=== PATIENT | male | born 1945 | race Caucasian/White ===

== ENCOUNTER 2021-10-13 07:29 | Outpatient (CLI) | payer MEDICARE, SELFPAY | END 2021-10-13 07:30 | disposition home or self-care (01) | PROVIDERS: Visit Provider Urology | DX: R97.20 Elevated prostate specific antigen [PSA] (principal) | CPT/HCPCS: 51741; 51798; 81003; 84153; 99204 ==

== ENCOUNTER → 2021-10-18 15:26 | Outpatient (BNVA) | payer MEDICARE, SELFPAY | PROVIDERS: Visit Provider Urology | DX: R97.20 Elevated prostate specific antigen [PSA] (principal) | CPT/HCPCS: 88305 ==

== ENCOUNTER 2021-11-01 08:16 | Outpatient (CLI) | payer MEDICARE, SELFPAY ==
--- NOTE | 2021-11-01 09:00 | CT_ITS ---
WS: [id number] CT ABDOMEN AND PELVIS WITH AND WITHOUT CONTRAST HISTORY: ELEVATED PSA TECHNIQUE: Unenhanced 5 mm axial imaging first performed through the abdomen. Post contrast imaging t hrough the abdomen and pelvis. Oral contrast has been provided. Sagittal and coronal reformats are s ubmitted. All CT scans at [facility] use at least one of these dose optimization techniques: automated exposure control; mA and/or kV adjustment per patient size (includes targeted exams where d ose is matched to clinical indication); or iterative reconstruction. CONTRAST: Omnipaque 350; 95 mL IV. DLP: 2620.96 mGy.cm COMPARISON: None available. Mild emphysema at the lung bases. Benign granuloma RIGHT middle lobe. Heart size is normal. Small hia lee hernia. RIGHT kidney: 11.0 cm in length. Mild chronic appearing perinephric stranding. Vascular calcification s. No hydronephrosis or solid mass. The ureter is not dilated. No filling defects in the uroepithelia l system. LEFT kidney: 12.1 cm in length. Mild perinephric stranding. No obstruction. Vascular calcifications i n the central renal pelvis. No solid mass. No filling defects within the urological system. Urinary bladder: Very mild diffuse wall thickening of the urinary bladder with no focal thickening. N o focal nodule or abnormal enhancement on the postcontrast imaging. Prostate gland is very mildly enl arged and heterogeneous measuring 3.7 x 4.7 x 4.9 cm. Minimal encroachment into the base of the urina ry bladder. Small cystic area in the posterior prostate measures 10 mm. Liver is normal size. Multiple low-attenuation masses consistent with cysts. These range in size from a few millimeters which are too small to completely characterize with the largest in the RIGHT lobe measuring 2.5 x 2.6 cm. No bile duct dilatation. Gallbladder is negative. Normal spleen with granulom juno. No adrenal mass. Normal pancreas. Stomach is minimally distended. No small bowel obstruction. No wall thickening of the GI tract. The a ppendix is normal. Numerous scattered diverticula in the colon. No evidence for acute diverticulitis. Moderate atherosclerotic plaque throughout the aorta with no aneurysm. Moderate calcified plaque at t he origin of the celiac axis and SMA. Calcified plaque continues into the mid SMA. Heavy calcificatio n in the splenic artery. Calcified plaque in the proximal renal arteries. Heavy calcified plaque cont inues into the common iliac arteries bilaterally with areas of stenosis extending into the internal a nd external iliac arteries. Advanced degenerative disc disease and spondylitic changes within the lumbar spine. Degenerative scol iosis. Mild degenerative changes at the hip joints. CT/CT abdomen pelvis wo/w [id number] IMPRESSION: 1. No renal mass or obstruction. 2. Mild prostate gland enlargement with minimal encroachment into the urinary bladder. Prostate gland measures 3.7 x 4.7 x 4.9 cm. 3. Extensive calcified plaque within the aorta, mesenteric arteries and contin uing into the iliac arteries bilaterally with areas of stenosis. 4. Hepatic cysts. 5. Diverticulosis without acute diverticulitis.
[2021-11-01 09:11] LABS: Blood Urea Nitrogen 11 mg/dL (8-23)
--- NOTE | 2021-11-01 10:30 | NM_ITS ---
WS: [id number] NUCLEAR MEDICINE WHOLE BODY BONE SCAN HISTORY: Prostate cancer. Elevated PSA. COMPARISON: CT abdomen and pelvis 11/01/2021. TECHNIQUE: The patient was injected with 23.9 mCi of Technetium 99m HDP and serial whole-body scintig lakesha have been performed with anterior and posterior images. There is a focal area of very mild increased uptake within the LEFT inferior anterior eighth or ninth rib. No sclerotic focus noted on the recent CT in this region. There are 2 adjacent healed rib fract ures in the LEFT thorax at the eighth and ninth ribs which may correspond to this abnormality. There is additional moderate increased uptake within the LEFT fifth rib posteriorly, indeterminate for meta static site. Slight increased uptake in the lumbar spine involving the L2 and LEFT lateral L5 vertebr al bodies. This corresponds to an area of marked sclerosis and degenerative changes by CT. No skull lesions. Minimal degenerative changes at the AC joint and glenohumeral joint, greatest on th e RIGHT. Mild degenerative uptake at the ankles. Normal soft tissue uptake. Normal renal uptake. HI/HI bone scan whole body* [id number] IMPRESSION: 1. Slight increased uptake in the LEFT anterior eighth or ninth rib. Correspon ds to a healed fracture seen on the recent CT. There are healed fractures in jose th the eighth and ninth ribs noted on the CT. 2. Increased uptake within the L2 and L5 vertebral bodies. Likely degenerative . Increased sclerotic changes throughout the lumbar spine. 3. Indeterminate moderate increased uptake within the posterior LEFT fifth rib . This could be an early metastatic site.
== END 2021-11-01 08:17 | disposition home or self-care (01) ==
PROVIDERS: Visit Provider Urology
DX: R97.20 Elevated prostate specific antigen [PSA] (principal); R39.89 Other symptoms and signs involving the genitourinary system
CPT/HCPCS: 55700; 74178; 76872; 76942; 78306; 82565; 84520; 99213; A9561; Q9967

== ENCOUNTER → 2021-11-02 15:32 | Outpatient (BNVA) | payer MEDICARE, SELFPAY | PROVIDERS: Visit Provider Urology | DX: C61 Malignant neoplasm of prostate (principal) | CPT/HCPCS: 99214 ==

== ENCOUNTER 2021-11-21 10:03 | Oncology outpatient (recurring) (ONCR) | payer MEDICARE, SELFPAY | END 2021-11-21 23:59 | disposition home or self-care (01) | PROVIDERS: Visit Provider Internal Medicine Medical Oncology | DX: C61 Malignant neoplasm of prostate (principal); F17.210 Nicotine dependence, cigarettes, uncomplicated; Z79.899 Other long term (current) drug therapy; Z79.818 Long term (current) use of other agents affecting estrogen receptors and estrogen levels | CPT/HCPCS: 99205 ==

== ENCOUNTER 2021-12-28 11:01 | Oncology outpatient (recurring) (ONCR) | payer MEDICARE, SELFPAY ==
[2021-12-28 11:19] LABS: Basophils # 0.1 10^3/uL (0.0-0.1); Basophils % 0.8 %; Eosinophils # 0.7 10^3/uL (0.0-0.8); Eosinophils % 8.8 %; Hematocrit 41.7 % (42.0-52.0); Hemoglobin 14.2 g/dL (11.7-16.6); Lymphocytes # 2.3 10^3/uL (0.8-4.8); Lymphocytes % 29.8 %; Mean Corpuscular HGB Conc 34.1 g/dL (30.0-36.0); Mean Corpuscular Hemoglobin 29.9 pg (28.0-34.0); Mean Corpuscular Volume 87.8 fl (80-94); Mean Platelet Volume 8.1 fL (7.4-10.4); Monocytes # 0.8 10^3/uL (0.2-0.9); Monocytes % 10.2 %; Neutrophils # 3.88 10^3/uL (1.8-7.7); Nucleated Red Blood Cells % 0 %; Platelet Count 535 10^3/cmm (130-400); Red Blood Count 4.75 10^6/uL (4.1-5.3); Red Cell Distribution Width 14.5 % (12.1-15.1); White Blood Count 7.8 10^3/uL (4.0-10.0)
[2021-12-28 11:54] LABS: Alanine Aminotransferase 13 U/L (0-41); Albumin Level 3.7 g/dL (3.5-5.2); Alkaline Phosphatase 84 U/L (40-130); Anion Gap 13.4 (5-19); Aspartate Amino Transferase 16 U/L (0-40); Blood Urea Nitrogen 13 mg/dL (8-23); Calcium 9.3 mg/dL (8.5-10.5); Carbon Dioxide 23 mmol/L (22-29); Chloride 102 mmol/L (98-107); Globulin 3.9 g/dL (1.3-4.6); Glucose 79 mg/dL (65-115); Osmolality Calculated 277 mOsm/kg (285-295); Potassium 4.4 mmol/L (3.5-5.1); Sodium 134 mmol/L (136-145); Total Bilirubin 0.3 mg/dL (0.15-1.2); Total Protein 7.6 g/dL (6.6-8.7)
[2021-12-28] MEDS: leuprolide 22.5 mg Kit IM (13:15)
== END 2022-01-03 23:59 | disposition home or self-care (01) ==
PROVIDERS: Visit Provider Internal Medicine Medical Oncology
DX: C61 Malignant neoplasm of prostate (principal); Z79.818 Long term (current) use of other agents affecting estrogen receptors and estrogen levels; F17.210 Nicotine dependence, cigarettes, uncomplicated; L02.416 Cutaneous abscess of left lower limb
CPT/HCPCS: 36415; 80053; 84153; 85025; 96402; 99214; 99215; J9217

== ENCOUNTER 2022-01-05 10:55 | Emergency (ER) | payer MEDICARE, SELFPAY ==
[2022-01-05 11:08] VITALS: BP 117/63; PULSE 79; RESP 16; TEMP 36.8; O2SAT 94
--- NOTE | 2022-01-05 11:16 | ED_ITS ---
HPI - Fever General: Chief Complaint: Fever Stated Complaint: Fever, Cancer pt Time Seen by Provider: 01/05/22 11:15 History of Present Illness: Mr. Gallego is a 76-year-old gentleman with significant past medical history of prostate cancer on hormonal therapy who presents to the emergency department due to recurrent fevers. Onset of symptoms was 3 days ago and since that time he has had fevers which are low-grade associated with generalized malaise. These typically improve with acetaminophen. He denies other focal sources of infections. Intensity symptoms when present is mild to moderate. Course has persisted. No other specific changes in health, exacerbating, or alleviating factors identified. Patient is currently on a course of Bactrim and has been so for approximately 3 days as well. Onset (ago): day(s) Context: other (Hormonal cancer therapy) Relieving factors: acetaminophen Associated symptoms: Reports other Review of Systems General: Reports: 10 or more systems reviewed and unremarkable except in HPI and below PFSH ED PFSH: Medical History Prostate cancer Surgical History History of prostate biopsy (10/18/21) TRUSP/biopsy Family History Father , AT 40 of unknown cause Mother , AT 88 Dementia Other CAD (coronary artery disease) Cancer Denies family history of Diabetes Clotting disorder Hyperlipidemia Psychiatric illness Chronic kidney disease (CKD) Suicide Anesthesia complication Bleeding disorder Lung disease Hypertension Stroke Social History Smoking and tobacco status: current every day smoker (1 ppd, smoked x 57 years) cigarettes Packs smoked per day: 1 Years cigarettes smoked: 50 Alcohol intake: never Marital status: Current occupational status: employed History of recent travel: No Physical Exam Const: COMMON NORMALS: alert GENERAL APPEARANCE: cooperative and well developed HENMT: COMMON NORMALS: normocephalic and atraumatic HEAD & SCALP: normocephalic and atraumatic Eye: COMMON NORMALS: conjunctivae normal CONJUNCTIVA: Yes conjunctivae normal SCLERA: sclerae normal Neck/C-Spine: COMMON NORMALS: supple GENERAL: Yes trachea midline Resp: COMMON NORMALS: normal respiratory effort and clear to auscultation bilaterally EFFORT & INSPECTION: Yes able to speak in complete sentences AUSCULTATION: clear to auscultation bilaterally Cardio: COMMON NORMALS: regular rate and regular rhythm RATE: regular rate RHYTHM: regular rhythm GI: COMMON NORMALS: Soft to palpation PALPATION: Yes Soft to palpation and No Tenderness to palpation present (GI) PERCUSSION: normal to percussion Extremity: GENERAL: Yes normal exam except as noted and No edema Neuro: COMMON NORMALS: moves all extremities SENSORIUM/ORIENTATION: Yes alert and No Orientation impaired Psych: COMMON NORMALS: mental status grossly normal and Normal thought process present THOUGHT PROCESS: Normal thought process present Skin: NARRATIVE SKIN EXAM: Left anterior thigh approximately 3 cm in diameter ecchymotic lesion reportedly from insect bite, no targetoid lesions or vesicles, no central area of necrosis Course ED course: - Patient was seen and evaluated by me at bedside - Patient placed on cardiac monitors, IV access obtained - Initial evaluation notable for exam as above - Labs and xrays personally interpreted by me -Fluids given - Labs notable for no leukocytosis, normal hemoglobin. Metabolic panel with evidence of dehydration. Tick panel pending - Imaging notable for bibasilar opacities. Given patient's reported clinical history concerning for pneumonia. Antibiotics ordered. - Upon serial reexamination after treatment the patient was significantly improved - Based on patient history, evaluation, and testing as interpreted the most likely cause of the patient's condition is pneumonia with dehydration. Given that patient is on hormonal therapy as opposed to traditional chemotherapy highly that he does not require admission at this time given improvement. - The results of ED evaluation were discussed with the patient including prescriptions and/or symptomatic cares (if applicable) including appropriate and responsible use, followup plan, and return precautions. The patient verbalized understanding and felt safe for discharge. - Patient discharged in satisfactory condition. Note: Click bubbles or prepopulated reynolds in note writing are used for assistance with data collection and billing and are inherently more limited than narrative and other text portions of this note. Please use narrative for additional clinical history and defer to narrative/free test for any case of contradictory information. If information appears in only free text or click bubble it should be considered present or absent as reported. Please contact note curriculum writer for clarifications of clinical information or contradictory information. MDM is a brief summary, contradictory or erroneous seeming information should be clarified and full note should be reviewed. Vital Signs: Vital signs: Vital Signs Temperature 98.3 F 01/05/22 11:08 Pulse Rate 84 01/05/22 14:25 Respiratory Rate 18 01/05/22 14:25 Blood Pressure 127/90 01/05/22 14:25 Pulse Oximetry 96 01/05/22 14:25 Oxygen Delivery Me thod 01/05/22 13:02 MDM - Fever Medical Decision Making 76-year-old gentleman with history of prostate cancer currently on hormonal therapy presenting with fever and general symptoms. Patient found to likely have pneumonia and will be treated. Strict return precautions given. Medical Records I reviewed the patient's medical records. Lab Data I reviewed the patient's lab results. : 01/05/22 11:36 01/05/22 11:36 Radiology Impressions Chest X-Ray 01/05/22 12:52 IMPRESSION: Streaky bibasilar atelectasis. Pneumonia should be excluded clinically. Laboratory Results WBC 5.2 10^3/uL (4.0-10.0) 01/05/22 11:36 RBC 4.58 10^6/uL (4.1-5.3) 01/05/22 11:36 Hgb 13.6 g/dL (11.7-16.6) 01/05/22 11:36 Hct 40.2 % (42.0-52.0) L 01/05/22 11:36 MCV 87.8 fl (80-94) 01/05/22 11:36 MCH 29.7 pg (28.0-34.0) 01/05/22 11:36 MCHC 33.8 g/dL (30.0-36.0) 01/05/22 11:36 RDW 14.7 % (12.1-15.1) 01/05/22 11:36 Plt Count 444 10^3/cmm (130-400) H 01/05/22 11:36 MPV 8.0 fL (7.4-10.4) 01/05/22 11:36 Neut % (Auto) 78.5 % 01/05/22 11:36 Lymph % (Auto) 13.1 % 01/05/22 11:36 Carson % (Auto) 6.8 % 01/05/22 11:36 Eos % (Auto) 0.0 % 01/05/22 11:36 Baso % (Auto) 0.8 % 01/05/22 11:36 Neut # (Auto) 4.07 10^3/uL (1.8-7.7) 01/05/22 11:36 Lymph # (Auto) 0.7 10^3/uL (0.8-4.8) L 01/05/22 11:36 Carson # (Auto) 0.4 10^3/uL (0.2-0.9) 01/05/22 11:36 Eos # (Auto) 0.0 10^3/uL (0.0-0.8) 01/05/22 11:36 Baso # (Auto) 0.0 10^3/uL (0.0-0.1) 01/05/22 11:36 Nucleated RBC % (auto) 0 % 01/05/22 11:36 Nucleated RBCs # 0.0 /100WBC 01/05/22 11:36 Sodium 126 mmol/L (136-145) L 01/05/22 11:36 Potassium 4.3 mmol/L (3.5-5.1) 01/05/22 11:36 Chloride 97 mmol/L (98-107) L 01/05/22 11:36 Carbon Dioxide 18 mmol/L (22-29) L 01/05/22 11:36 Anion Gap 15.3 (5-19) 01/05/22 11:36 BUN 11 mg/dL (8-23) 01/05/22 11:36 Creatinine 0.8 mg/dL (0.7-1.2) 01/05/22 11:36 GFR Calculation Not Reportable 01/05/22 11:36 Glucose 103 mg/dL (65-115) 01/05/22 11:36 Calculated Osmolality 262 mOsm/kg (285-295) L 01/05/22 11:36 Calcium 9.0 mg/dL (8.5-10.5) 01/05/22 11:36 Total Bilirubin 0.2 mg/dL (0.15-1.2) 01/05/22 11:36 AST 30 U/L (0-40) 01/05/22 11:36 ALT 22 U/L (0-41) 01/05/22 11:36 Alkaline Phosphatase 76 U/L (40-130) 01/05/22 11:36 C-Reactive Protein 24.0 mg/L (0.0-4.9) H 01/05/22 11:36 Total Protein 7.3 g/dL (6.6-8.7) 01/05/22 11:36 Albumin 3.5 g/dL (3.5-5.2) 01/05/22 11:36 Globulin 3.8 g/dL (1.3-4.6) 01/05/22 11:36 Procalcitonin 0.09 ng/mL (0-0.5) 01/05/22 11:36 Lyme Ab (Western Blot) <0.90 index 01/05/22 11:36 E. chaffeensis IgG Ab 1:64 H 01/05/22 11:36 E. chaffeensis IgM Ab <1:20 01/05/22 11:36 E. chaffeensis Interp Past infection A 01/05/22 11:36 E. chaffeensis Comment Not Reportable 01/05/22 11:36 Discharge Plan Discharge Patient Disposition: Home Clinical Impression: Community acquired pneumonia, Fever, Hyponatremia Condition: Stable Prescriptions: No Action Zyrtec 10 mg capsule 10 mg PO DAILY PRN (Reason: Allergy Symptoms) bicalutamide 50 mg tablet 50 mg PO DAILY Qty: 30 0RF sulfamethoxazole-trimethoprim [Bactrim DS] 800-160 mg tablet 1 tab PO BID 10 Days Qty: 20 0RF enzalutamide 40 mg capsule 160 mg PO DAILY Qty: 120 0RF tamsulosin 0.4 mg capsule 0.4 mg PO BID Tylenol Ex Str Rapid Release 500 mg Tablet 1,000 mg PO QID PRN (Reason: Pain) Discharge Orders: Discharge ED (Routine); Ordered 01/05/22 Ordered By: Mc Segovia Discharge Diet: Usual diet Discharge Activity: Increase activity as tolerated Patient Instructions: Doxycycline (By mouth), Dehydration (ED), Hyponatremia (ED), Pneumonia (ED) Activity Restrictions/Additional Instructions: Thank you for visiting the emergency department. You were seen and evaluated for fever and generalized symptoms. The exact cause of your symptoms is unclear though may be related to pneumonia and dehydration/hyponatremia. Please ensure that you are staying hydrated with electrolyte solutions and water. I will prescribe an additional antibiotic, please continue to take your previously prescribed antibiotic. Please follow-up with your primary care provider and Dr. El next week. Return to the emergency department for worsening symptoms or anything else that you are concerned about and feel needs emergency department evaluation. Coding Level of Care Code ED Certified Massage Therapist for Heidy Norman Exam Comprehensive
[2022-01-05 11:26] VITALS: BP 126/72; PULSE 85; RESP 17; O2SAT 95
[2022-01-05 11:44] LABS: Basophils % 0.8 %; Hematocrit 40.2 % (42.0-52.0); Hemoglobin 13.6 g/dL (11.7-16.6); Lymphocytes # 0.7 10^3/uL (0.8-4.8); Lymphocytes % 13.1 %; Mean Corpuscular HGB Conc 33.8 g/dL (30.0-36.0); Mean Corpuscular Hemoglobin 29.7 pg (28.0-34.0); Mean Corpuscular Volume 87.8 fl (80-94); Monocytes # 0.4 10^3/uL (0.2-0.9); Monocytes % 6.8 %; Neutrophils # 4.07 10^3/uL (1.8-7.7); Neutrophils % 78.5 %; Nucleated Red Blood Cells % 0 %; Platelet Count 444 10^3/cmm (130-400); Red Blood Count 4.58 10^6/uL (4.1-5.3); Red Cell Distribution Width 14.7 % (12.1-15.1); White Blood Count 5.2 10^3/uL (4.0-10.0)
[2022-01-05 12:24] LABS: Procalcitonin 0.09 ng/mL (0-0.5)
[2022-01-05 12:36] LABS: Alanine Aminotransferase 22 U/L (0-41); Albumin Level 3.5 g/dL (3.5-5.2); Alkaline Phosphatase 76 U/L (40-130); Aspartate Amino Transferase 30 U/L (0-40); Blood Urea Nitrogen 11 mg/dL (8-23); Carbon Dioxide 18 mmol/L (22-29); Chloride 97 mmol/L (98-107); Globulin 3.8 g/dL (1.3-4.6); Glucose 103 mg/dL (65-115); Osmolality Calculated 262 mOsm/kg (285-295); Sodium 126 mmol/L (136-145); Total Bilirubin 0.2 mg/dL (0.15-1.2); Total Protein 7.3 g/dL (6.6-8.7)
[2022-01-05 12:39] LABS: Anion Gap 15.3 (5-19); Potassium 4.3 mmol/L (3.5-5.1)
--- NOTE | 2022-01-05 12:52 | XRR_ITS ---
PROCEDURE INFORMATION: Exam: XR Chest Exam date and time: 01/05/2022 12:55 PM Age: 76 years old Clinical indication: Fever TECHNIQUE: Imaging protocol: Radiologic exam of the chest. Views: 1 view. COMPARISON: NM bone scan whole body* [id number] 11/01/2021 10:30 AM FINDINGS: Lungs: Streaky bibasilar atelectasis noted, right greater than left. Pneumonia should be excluded clinically. Pleural spaces: Unremarkable. No pleural effusion. No pneumothorax. Heart/Mediastinum: Unremarkable. No cardiomegaly. Bones/joints: Unremarkable. XR/XR chest 1V portable [id number] IMPRESSION: Streaky bibasilar atelectasis. Pneumonia should be excluded clinically.
[2022-01-05 13:02] VITALS: BP 125/68; PULSE 85; RESP 17; O2SAT 96
[2022-01-05] MEDS: sodium chloride 0.9% 1,000 ML 999 ML IV (13:05)
[2022-01-05] MEDS: cefTRIAXone 1,000 MG in sodium chloride 0.9% (plus) 50 ML 100 MG IV (13:36)
[2022-01-05] MEDS: doxycycline 100 mg Tablet PO (13:37)
[2022-01-05 14:25] VITALS: BP 127/90; PULSE 84; RESP 18; O2SAT 96
[2022-01-09 15:18] LABS: Lyme AB Screen <0.90 index
[2022-01-10 21:38] LABS: E. Chaffeensis AB IGM <1:20; Interpretation PAST INFECTION
[2022-01-20 16:03] LABS: RMSF IGG DETECTED; RMSF IGM NOT DETECTED
== END 2022-01-05 14:27 | disposition home or self-care (01) ==
PROVIDERS: Emergency Provider Emergency Medicine
DX: J18.9 Pneumonia, unspecified organism (principal); E87.1 Hypo-osmolality and hyponatremia; Z85.46 Personal history of malignant neoplasm of prostate; F17.210 Nicotine dependence, cigarettes, uncomplicated
CPT/HCPCS: 71045; 80053; 84145; 85025; 86140; 86618; 86666; 86757; 87040; 96365; 96375; 99284; J0696; J7030

== ENCOUNTER 2022-01-25 13:28 | Oncology outpatient (recurring) (ONCR) | payer MEDICARE, SELFPAY | END 2022-02-02 23:59 | disposition home or self-care (01) | PROVIDERS: Visit Provider Internal Medicine Medical Oncology | DX: C61 Malignant neoplasm of prostate (principal) | CPT/HCPCS: 36415; 84153 ==

== ENCOUNTER 2022-02-03 10:00 | Inpatient (IN) | payer MEDICARE, SELFPAY ==
[2022-02-03] VITALS (92 sets, daily range): BP systolic 127–179; BP diastolic 78–123; PULSE 76–119; RESP 10–31; TEMP 36.6; O2SAT 74–97; BMI 24.4
--- NOTE | 2022-02-03 10:06 | CTR_ITS ---
PROCEDURE INFORMATION: Exam: CT Head Without Contrast Exam date and time: 02/03/2022 10:01 AM Age: 76 years old Clinical indication: Stroke-like symptoms; Other: Left side weakness; Additional info: Left sided weakness TECHNIQUE: Imaging protocol: Computed tomography of the head without contrast. Radiation optimization: All CT scans at this facility use at least one of these dose optimization techniques: automated exposure control; mA and/or kV adjustment per patient size (includes targeted exams where dose is matched to clinical indication); or iterative reconstruction. Other technique: STROKE PROTOCOL was implemented. COMPARISON: NM bone scan whole body* [id number] 11/01/2021 10:30 AM RADIATION DOSE METRICS: Total DLP (mGy-cm): 1066.68 FINDINGS: Brain: No acute hemorrhage identified. No large territorial areas of hypoattenuation concerning for ischemic infarct identified. No intracranial mass effect. Cerebral ventricles: The ventricles are within normal limits. Paranasal sinuses: Partially visualized frothy changes in the maxillary sinuses. Minimal mucosal thickening in the ethmoid air cells. Mastoid air cells: The visualized mastoid air cells are well aerated. Bones/joints: The osseous structures are intact. Soft tissues: Unremarkable. CT/CT head wo con* [id number] IMPRESSION: 1. No acute intracranial abnormality identified. 2. Paranasal sinus disease. ASSESSMENT: ASPECTS ([place] Stroke Program Early CT Score) is 10.
--- NOTE | 2022-02-03 10:13 | CTR_ITS ---
PROCEDURE INFORMATION: Exam: CTA Head With Contrast, Arteriography Exam date and time: 02/03/2022 11:55 AM Age: 76 years old Clinical indication: Weakness; Additional info: Tia/acute CVA symptoms TECHNIQUE: Imaging protocol: Computed tomographic angiography of the head with contrast. Exam focused on the arteries. 3D rendering (Not supervised by radiologist): MIP and/or 3D reconstructed images were created by the technologist. Radiation optimization: All CT scans at this facility use at least one of these dose optimization techniques: automated exposure control; mA and/or kV adjustment per patient size (includes targeted exams where dose is matched to clinical indication); or iterative reconstruction. Contrast material: OMNI 350; Contrast volume: 95 ml; Contrast route: INTRAVENOUS (IV); COMPARISON: CT head wo con* [id number] 02/03/2022 10:59 AM RADIATION DOSE METRICS: Total DLP (mGy-cm): 1078.5 FINDINGS: ANTERIOR CIRCULATION: Right internal carotid artery: Intracranial segment is patent with no significant stenosis. No aneurysm. Right middle cerebral artery: No occlusion or significant stenosis. No aneurysm. Right anterior cerebral artery: No occlusion or significant stenosis. No aneurysm. Left internal carotid artery: Intracranial segment is patent with no significant stenosis. No aneurysm. Left middle cerebral artery: No occlusion or significant stenosis. No aneurysm. Left anterior cerebral artery: No occlusion or significant stenosis. No aneurysm. POSTERIOR CIRCULATION: Right vertebral artery: No occlusion or significant stenosis. No aneurysm. Left vertebral artery: No occlusion or significant stenosis. No aneurysm. Basilar artery: No occlusion or significant stenosis. No aneurysm. Right posterior cerebral artery: No occlusion or significant stenosis. No aneurysm. Left posterior cerebral artery: No occlusion or significant stenosis. No aneurysm. Diffuse sinus disease. PROCEDURE INFORMATION: Exam: CTA Neck With Contrast Exam date and time: 02/03/2022 11:55 AM Age: 76 years old Clinical indication: Weakness; Additional info: Tia/acute CVA symptoms TECHNIQUE: Imaging protocol: Computed tomographic angiography of the neck with contrast. 3D rendering (Not supervised by radiologist): MIP and/or 3D reconstructed images were created by the technologist. Radiation optimization: All CT scans at this facility use at least one of these dose optimization techniques: automated exposure control; mA and/or kV adjustment per patient size (includes targeted exams where dose is matched to clinical indication); or iterative reconstruction. Contrast material: OMNI 350; Contrast volume: 95 ml; Contrast route: INTRAVENOUS (IV); COMPARISON: NM bone scan whole body* [id number] 11/01/2021 10:30 AM RADIATION DOSE METRICS: Total DLP (mGy-cm): 1078.5 FINDINGS: Right common carotid artery: There is an area of atherosclerotic disease involving the distal portion of the right carotid artery bulb however this is between 30 and 50% narrowing does not appear to be hemodynamically significant. Right internal carotid artery: No stenosis of the extracranial segment. No dissection or occlusion. Right external carotid artery: No occlusion or stenosis of the origin. Left common carotid artery: No stenosis. No dissection or occlusion. Left internal carotid artery: No stenosis of the extracranial segment. No dissection or occlusion. Left external carotid artery: No occlusion or stenosis of the origin. Right vertebral artery: No stenosis. No dissection or occlusion. Left vertebral artery: Direct origin of the left vertebral artery from the aorta. Soft tissues: Normal. No significant soft tissue swelling. Bones/joints: No acute fracture. Lungs: Hazy posterior upper lobe lungs questionably dependent atelectasis. CT/CT angio headneck* [id number] IMPRESSION: No large vessel stenosis or occlusion. IMPRESSION: No stenosis or occlusion. REFERENCES: NASCET CRITERIA. The degree of stenosis in the cervical segment of the internal carotid artery is based on NASCET criteria. Normal is no stenosis. Mild is less than 50% stenosis. Moderate is 50-69% stenosis. Severe is 70% to 99% stenosis. Total occlusion is no detectable patent lumen.
--- NOTE | 2022-02-03 10:14 | W.ED.NEUROSD ---
HPI - Neuro Symptoms/Deficit General: Chief Complaint: ER Hold Stated Complaint: LEFT SIDED WEAKNESS Time Seen by Provider: 02/03/22 10:03 Source: patient Mode of arrival: ambulatory Limitations: no limitations History of Present Illness: 76-year-old male presents emergency room with complaints of left-sided weakness and aphasia. It began suddenly at 845 lasted about 15 minutes and then completely resolved EMS was called is transferred by air VAC to the hospital on arrival here he has no symptoms at all. Patient has a history of esophageal and prostate cancer he recently started a new medication for cancer treatment 3 days ago. He denies any chest pain. On his initial exam his stroke score is 0. 1054 - patient began having symptoms again his alerted us I came in the room he had clear marked change in symptoms with left facial paralysis flaccid in the left arm and leg whereas before he was able to fully move them. He had some mild dysarthria as well repeat stroke score is 11. CT of the head repeated stat and there is no acute changes no evidence of bleed. Discussed with the patient and the at the bedside they give consent tPA given. tPA bolus initially given at 1105. Last Observed Normal: 10:54 Timing confirmed by: spouse Location: speech, left face, left arm and left leg History of same: No Severity: severe Quality: weak Relieving factors: none Exacerbating factors: none Context: sudden onset On Anticoagulants: No Associated symptoms: Deny chest pain, cough, diaphoresis, fevers/chills, headache(s), anorexia, malaise, nausea, seizures, short of breath, syncope, tingling, vertigo, vomiting or weakness Treatments Prior to Arrival: none Review of Systems Const: Denies: malaise or diaphoresis ENMT: Denies: throat pain, ear or mastoid pain, nasal discharge or nasal congestion Card: Denies: chest pain or syncope Resp: Denies: dyspnea, productive cough or non-productive cough GI: Denies: nausea or vomiting : Denies: flank pain, dysuria, urinary frequency or urinary urgency Skin/Breast: Denies: rash or pruritus Neuro: Denies: headache(s) or vertigo PFSH ED PFSH: Medical History Acute CVA (cerebrovascular accident) Prostate cancer Surgical History History of prostate biopsy (10/18/21) TRUSP/biopsy Family History Father , AT 40 of unknown cause Mother , AT 88 Dementia Other CAD (coronary artery disease) Cancer Denies family history of Diabetes Clotting disorder Hyperlipidemia Psychiatric illness Chronic kidney disease (CKD) Suicide Anesthesia complication Bleeding disorder Lung disease Hypertension Stroke Social History Smoking and tobacco status: current every day smoker (1 ppd, smoked x 57 years) cigarettes Packs smoked per day: 1 Years cigarettes smoked: 50 Alcohol intake: never Marital status: Current occupational status: employed 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 History of recent travel: No NIH stroke score NIHSS: Level Of Consciousness - 1a: 1 Level Of Consciousness Questions - 1b: Both Correct Level Of Consciousness Commands - 1c: Both Correct Best Gaze - 2: Normal Visual Márquez - 3: No Visual Loss Facial Palsy - 4: Minor Paralysis Motor Arm Right - 5: No Drift Motor Arm Left - 5: No Effort Against [place] Motor Leg Right - 6: No Effort Against [place] Motor Leg Left - 6: No Drift Limb Ataxia - 7: Present In Two Limbs Sensory - 8: Normal Best Language - 9: No Aphasia Dysarthia - 10: Mild/Moderate Dysarthia Extinction And Inattention - 11: 0 Score: Total Score: 11 Physical Exam Const: COMMON NORMALS: no acute distress GENERAL APPEARANCE: cooperative and comfortable ORIENTATION/CONSCIOUSNESS: Yes awake, Yes oriented to person, Yes oriented to place and Yes oriented to time HENMT: COMMON NORMALS: normocephalic, atraumatic, hearing grossly normal bilaterally, external ears normal, EAC's normal, TM's normal bilaterally, Normal nasal mucous membranes and turbinates present, moist oral mucous membranes and oropharynx normal HEAD & SCALP: normocephalic and atraumatic NOSE: Normal nasal mucous membranes and turbinates present EXTERNAL EAR: Yes external ears normal EXTERNAL AUDITORY CANAL: EAC's normal TYMPANIC MEMBRANE: TM's normal bilaterally Eye: COMMON NORMALS: Equal, round and reactive pupils present, EOMs intact bilaterally, conjunctivae normal and no scleral icterus CONJUNCTIVA: Yes conjunctivae normal PUPIL: Yes Equal, round and reactive pupils present Neck/C-Spine: COMMON NORMALS: full ROM, no lymphadenopathy, supple and no JVD Lymph: LYMPHATIC: no lymphadenopathy noted and no lymphedema noted Resp: COMMON NORMALS: normal respiratory effort, No retractions, No use of accessory muscles and clear to auscultation bilaterally AUSCULTATION: clear to auscultation bilaterally Cardio: COMMON NORMALS: no JVD, regular rate, regular rhythm and No murmurs present (Cardio) RATE: regular rate RHYTHM: regular rhythm GI: COMMON NORMALS: Soft to palpation and No hepatosplenomegaly present AUSCULTATION: Yes normoactive bowel sounds PALPATION: Yes Soft to palpation, No Tenderness to palpation present (GI), No Guarding due to palpation present (GI) and Yes No hepatosplenomegaly present Extremity: COMMON NORMALS: normal to inspection, capillary refill normal, no clubbing, cyanosis or edema, no calf tenderness and no pedal edema Neuro: SENSORIUM/ORIENTATION: Yes oriented to person, Yes oriented to place and Yes oriented to time Skin: COMMON NORMALS: no rashes or lesions noted GENERAL SKIN EXAM: no rashes or lesions noted Course Vital Signs: Vital signs: Vital Signs Temperature 97.8 F 02/07/22 12:34 Pulse Rate 78 02/07/22 12:34 Respiratory Rate 17 02/07/22 12:34 Blood Pressure 136/77 02/07/22 12:34 Pulse Oximetry 92 02/07/22 12:34 Oxygen Delivery Me thod 02/07/22 11:32 Oxygen Flow Rate 2 02/06/22 20:00 MDM - Neuro Symptoms/Deficit Medical Decision Making Patient initially arrived had a stroke score of 0 and then while we were performing his work-up he suddenly began to have symptoms again. Repeat CT scan was done to ensure there is no bleeding tPA applied patient had improvement will admit discussed with hospitalist. CTA done there is no large vessel occlusions amenable to embolectomy Medical Records I reviewed the patient's medical records. Lab Data I reviewed the patient's lab results. : 02/05/22 04:52 02/05/22 04:52 Radiology Impressions Head/Neck CTA 02/03/22 10:13 IMPRESSION: No large vessel stenosis or occlusion. IMPRESSION: No stenosis or occlusion. REFERENCES: NASCET CRITERIA. The degree of stenosis in the cervical segment of the internal carotid artery is based on NASCET criteria. Normal is no stenosis. Mild is less than 50% stenosis. Moderate is 50-69% stenosis. Severe is 70% to 99% stenosis. Total occlusion is no detectable patent lumen. Head CT 02/04/22 05:00 IMPRESSION: 1. Bilateral basal ganglia and thalamic lacunar infarcts again demonstrated. 2. Additional findings as described above. Chest X-Ray 02/04/22 15:05 IMPRESSION: Emphysematous change and interstitial prominence. Laboratory Results WBC 10.0 10^3/uL (4.0-10.0) 02/04/22 05:15 RBC 4.91 10^6/uL (4.1-5.3) 02/04/22 05:15 Hgb 14.4 g/dL (11.7-16.6) 02/04/22 05:15 Hct 42.9 % (42.0-52.0) 02/04/22 05:15 MCV 87.4 fl (80-94) 02/04/22 05:15 MCH 29.3 pg (28.0-34.0) 02/04/22 05:15 MCHC 33.6 g/dL (30.0-36.0) 02/04/22 05:15 RDW 14.1 % (12.1-15.1) 02/04/22 05:15 Plt Count 543 10^3/cmm (130-400) H 02/04/22 05:15 MPV 8.5 fL (7.4-10.4) 02/04/22 05:15 Neut % (Auto) 66.8 % 02/04/22 05:15 Lymph % (Auto) 21.8 % 02/04/22 05:15 [place] % (Auto) 8.3 % 02/04/22 05:15 Eos % (Auto) 2.2 % 02/04/22 05:15 Baso % (Auto) 0.4 % 02/04/22 05:15 Neut # (Auto) 6.71 10^3/uL (1.8-7.7) 02/04/22 05:15 Lymph # (Auto) 2.2 10^3/uL (0.8-4.8) 02/04/22 05:15 [place] # (Auto) 0.8 10^3/uL (0.2-0.9) 02/04/22 05:15 Eos # (Auto) 0.2 10^3/uL (0.0-0.8) 02/04/22 05:15 Baso # (Auto) 0.0 10^3/uL (0.0-0.1) 02/04/22 05:15 Nucleated RBC % (auto) 0 % 02/04/22 05:15 Nucleated RBCs # 0.0 /100WBC 02/04/22 05:15 PT 13.60 SECONDS (12.1-14.9) 02/03/22 10:15 INR 1.01 (0.8-1.2) 02/03/22 10:15 APTT 28.1 SECONDS (23.9-36.7) 02/03/22 10:15 Prot C Funct Activity 125 % normal (70-180) 02/04/22 05:21 Protein S Activity 81 % normal (70-150) 02/04/22 05:21 Sodium 133 mmol/L (136-145) L 02/04/22 05:15 Potassium 3.8 mmol/L (3.5-5.1) 02/04/22 05:15 Chloride 98 mmol/L (98-107) 02/04/22 05:15 Carbon Dioxide 26 mmol/L (22-29) 02/04/22 05:15 Anion Gap 12.8 (5-19) 02/04/22 05:15 BUN 13 mg/dL (8-23) 02/04/22 05:15 Creatinine 0.7 mg/dL (0.7-1.2) 02/04/22 05:15 GFR Calculation Not Reportable 02/04/22 05:15 Glucose 103 mg/dL (65-115) 02/04/22 05:15 POC Glucose 98 mg/dL (70-110) 02/03/22 12:46 Estimat Average Glucose 114 02/03/22 10:15 Hemoglobin A1c 5.6 % (4.0-6.0) 02/03/22 10:15 Calculated Osmolality 276 mOsm/kg (285-295) L 02/04/22 05:15 Calcium 9.9 mg/dL (8.5-10.5) 02/04/22 05:15 Total Bilirubin 0.4 mg/dL (0.15-1.2) 02/03/22 10:15 AST 22 U/L (0-40) 02/03/22 10:15 ALT 18 U/L (0-41) 02/03/22 10:15 Alkaline Phosphatase 104 U/L (40-130) 02/03/22 10:15 Total Protein 8.1 g/dL (6.6-8.7) 02/03/22 10:15 Albumin 3.8 g/dL (3.5-5.2) 02/03/22 10:15 Globulin 4.3 g/dL (1.3-4.6) 02/03/22 10:15 Triglycerides 153 mg/dL (0-150) H 02/03/22 10:15 Cholesterol 202 mg/dL (0-200) H 02/03/22 10:15 LDL Cholesterol, Calc 132 mg/dL (50-129) H 02/03/22 10:15 HDL Cholesterol 39 mg/dL (60-100) L 02/03/22 10:15 LDL/HDL Ratio 3.38 RATIO (0.00-3.22) H 02/03/22 10:15 Cholesterol/HDL Ratio 5.18 mg/dL (1.0-5.00) H 02/03/22 10:15 TSH 2.71 uIU/mL (0.27-4.20) 02/03/22 10:15 Urine Color Yellow (Yellow) 02/03/22 10:32 Urine Appearance Clear (CLEAR) 02/03/22 10:32 Urine pH 7.0 (5-7) 02/03/22 10:32 Ur Specific [place] 1.015 (1.005-1.030) 02/03/22 10:32 Urine Protein Negative 02/03/22 10:32 Urine Glucose (UA) Negative (Normal) 02/03/22 10:32 Urine Ketones Negative (Negative) 02/03/22 10:32 Urine Blood Negative (Negative) 02/03/22 10:32 Urine Nitrate Negative 02/03/22 10:32 Urine Bilirubin Negative (Negative) 02/03/22 10:32 Urine Urobilinogen 0.2 mg/dL (Negative) 02/03/22 10:32 Ur Leukocyte Esterase Negative (Negative) 02/03/22 10:32 Urine Opiates Screen Negative ng/mL (Negative) 02/03/22 10:32 Ur Barbiturates Screen Negative ng/mL (Negative) 02/03/22 10:32 Ur Phencyclidine Scrn Negative ng/mL (Negative) 02/03/22 10:32 Ur Amphetamines Screen Negative ng/mL (Negative) 02/03/22 10:32 U Benzodiazepines Scrn Negative ng/mL (Negative) 02/03/22 10:32 Urine Cocaine Screen Negative ng/mL (Negative) 02/03/22 10:32 U Marijuana (THC) Screen Negative ng/mL (Negative) 02/03/22 10:32 MARIYA Screen Negative (NEGATIVE) 02/04/22 05:21 Discharge Plan Discharge Patient Disposition: Admitted As Inpatient Admit Provider: Melisa Blakely Clinical Impression: Cerebrovascular accident Condition: Stable Discharge Diet: As Directed Discharge Activity: As per PT/OT instructions Coding Level of Care Code ED Regulator Assembler for Chg Fwd Exam Comprehensive
--- NOTE | 2022-02-03 10:21 | PC.NURSE ---
PT PLACED ON CONTINUOUS NIBP, SPO2, AND CM
[2022-02-03 10:28] LABS: Glucose Point of Care 103 mg/dL (70-110)
--- NOTE | 2022-02-03 10:29 | PC.NURSE ---
CORRECTION TO ONSET/DATE OF SYMPTOMS FOR NEURO ASSESSMENT. ONSET 02/03/22 [id number]
[2022-02-03 10:36] LABS: Basophils # 0.1 10^3/uL (0.0-0.1); Basophils % 0.8 %; Eosinophils # 1.1 10^3/uL (0.0-0.8); Eosinophils % 11.5 %; Hematocrit 44.2 % (42.0-52.0); Hemoglobin 14.7 g/dL (11.7-16.6); Lymphocytes # 2.8 10^3/uL (0.8-4.8); Lymphocytes % 30.3 %; Mean Corpuscular HGB Conc 33.3 g/dL (30.0-36.0); Mean Corpuscular Hemoglobin 29.6 pg (28.0-34.0); Mean Corpuscular Volume 89.1 fl (80-94); Mean Platelet Volume 8.5 fL (7.4-10.4); Monocytes # 0.8 10^3/uL (0.2-0.9); Monocytes % 9.1 %; Neutrophils # 4.42 10^3/uL (1.8-7.7); Neutrophils % 47.7 %; Nucleated Red Blood Cells % 0 %; Platelet Count 546 10^3/cmm (130-400); Red Blood Count 4.96 10^6/uL (4.1-5.3); Red Cell Distribution Width 14.4 % (12.1-15.1); White Blood Count 9.3 10^3/uL (4.0-10.0)
[2022-02-03 10:37] LABS: Add Urine Microscopic? NO; Charge for UA Resulting for Rev
[2022-02-03 10:39] LABS: Bilirubin Urine Negative (Negative); Blood Urine Negative (Negative); Glucose Urine UA Negative (Normal); Ketones Urine Negative (Negative); Leukocyte Esterase Urine Negative (Negative); Nitrate Urine Negative; Protein Urine Negative; Specific Gravity, Urine 1.015 (1.005-1.030); Urine Appearance Clear (CLEAR); Urine Color Yellow (Yellow); Urobilinogen Urine 0.2 mg/dL (Negative)
--- NOTE | 2022-02-03 10:41 | ECG_ITS ---
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 Measurements Intervals [place] Rate: 80 P: 39 GA: 203 QRS: -51 QRSD: 117 T: 9 QT: 394 QTc: 454 Interpretive Statements SINUS RHYTHM LEFT ATRIAL ENLARGEMENT [-0.15mV P-WAVE IN V1/V2] LOW QRS VOLTAGE IN PRECORDIAL LEADS [QRS DEFLECTION < 1.0 mV IN CHEST LEADS] LEFT ANTERIOR FASCICULAR BLOCK [QRS AXIS <= -45, QR IN I, RS IN II] POSSIBLE ANTERIOR MYOCARDIAL INFARCTION , OF INDETERMINATE AGE [30 ms Q WAVE IN V3/V4, OR R < 0.2 mV IN V4] No previous ECG available for comparison Electronically Signed On 02-04-2022 22:03:24 CDT by Pawel Alexis M.D. [id number]
[2022-02-03 10:49] LABS: Amphetamines Screen Urine Negative (Negative); Barbiturates Screen Urine Negative (Negative); Benzodiazepines Screen Urine Negative (Negative); Cocaine Screen Urine Negative (Negative); Opiate Screen Urine Negative (Negative); PCP Screen Urine Negative (Negative); THC Screen Urine Negative (Negative)
[2022-02-03 10:54] LABS: INR 1.01 (0.8-1.2); Partial Thromboplastin Time 28.1 SECONDS (23.9-36.7)
--- NOTE | 2022-02-03 11:00 | CTR_ITS ---
PROCEDURE INFORMATION: Exam: CT Head Without Contrast Exam date and time: 02/03/2022 10:59 AM Age: 76 years old Clinical indication: Stroke-like symptoms; Speech disturbance; Lt upper extremity and lt lower extremity weakness; Additional info: Left sided weakness TECHNIQUE: Imaging protocol: Computed tomography of the head without contrast. Radiation optimization: All CT scans at this facility use at least one of these dose optimization techniques: automated exposure control; mA and/or kV adjustment per patient size (includes targeted exams where dose is matched to clinical indication); or iterative reconstruction. Other technique: STROKE PROTOCOL was implemented. COMPARISON: CT head wo con* [id number] 02/03/2022 10:01 AM RADIATION DOSE METRICS: Total DLP (mGy-cm): 912.1 FINDINGS: Brain: Normal. No hemorrhage. Unremarkable white matter. No mass effect. Cerebral ventricles: No ventriculomegaly. Paranasal sinuses: Visualized sinuses are unremarkable. No fluid levels. Mastoid air cells: Visualized mastoid air cells are well aerated. Bones/joints: Unremarkable. No acute fracture. Soft tissues: Unremarkable. CT/CT head wo con* [id number] IMPRESSION: No acute intracranial abnormality. ASSESSMENT: ASPECTS ([place] Stroke Program Early CT Score) is 10.
[2022-02-03 11:03] LABS: Alanine Aminotransferase 18 U/L (0-41); Albumin Level 3.8 g/dL (3.5-5.2); Alkaline Phosphatase 104 U/L (40-130); Aspartate Amino Transferase 22 U/L (0-40); Blood Urea Nitrogen 13 mg/dL (8-23); Calcium 10.1 mg/dL (8.5-10.5); Carbon Dioxide 26 mmol/L (22-29); Chloride 98 mmol/L (98-107); Globulin 4.3 g/dL (1.3-4.6); Glucose 95 mg/dL (65-115); Osmolality Calculated 274 mOsm/kg (285-295); Sodium 132 mmol/L (136-145); Total Bilirubin 0.4 mg/dL (0.15-1.2); Total Protein 8.1 g/dL (6.6-8.7)
[2022-02-03 11:11] LABS: Anion Gap 12.4 (5-19); Potassium 4.4 mmol/L (3.5-5.1)
--- NOTE | 2022-02-03 11:12 | PC.NURSE ---
PT BEGAN TO HAVE APHASIA, LEFT ARM WEAKNESS, AND LEFT LEG WEAKNESS AT 1054. PT WAS UNABLE TO RAISE LEFT ARM OR LEFT LEG. PT HAD LEFT SIDED FACIAL DROOP AND WAS UNABLE TO SQUINT LEFT EYE EQUAL TO HIS RIGHT. DR. ALANIS NOTIFIED. STROKE ALERT CALLED. DR ALANIS GAVE VERBAL ORDER TO ADMINISTER TPA.
[2022-02-03] MEDS: iohexol 350 mg/mL 100 mL Btl IV (12:08)
[2022-02-03 12:50] LABS: Glucose Point of Care 98 mg/dL (70-110)
--- NOTE | 2022-02-03 13:02 | PM.HP ---
Providers/Chief Complaint Chief Complaint: LEFT SIDED WEAKNESS History of Present Illness Gamaliel Gallego is a 76 year old male who does not have significant past medical history other than stage IV prostate cancer with mets to lymph node and spine presented today after left-sided weakness. Patient lives in [place] with his . No significant medical history he only takes prostate cancer medication along tamsulosin. No history of CVA, CHF, coronary disease or seizure. Today around 8 AM he was not walking right as per the who is at the bedside he was walking bent forward, and then she noticed his left side of face was droopy at that time 9 1 was called by the time EMS arrived his symptoms resolved, he was flown to the ER, there were no symptoms at the time of presentation however a few times after while he was undergoing work-up in the ER he started having symptoms again with left-sided facial droop and left side weakness at that time code stroke was called, NIH 11 he received tPA within [address] head. He started to see some improvement of left side facial droop, able to lift his left leg against gravity, left arm is the weakest. He is feeling hungry and wanting to eat requested ER nurse to do bedside evaluation and let him have some liquid for now He will need PT/OT/ST Denying chest pain shortness of breath fever diarrhea he is not vaccinated for COVID-19 1 pack smoker per day Review of Systems Const: Denies: chills Eyes: Denies: change in vision ENMT: Denies: throat pain Card: Denies: chest pain Resp: Denies: dyspnea GI: Denies: abdominal pain : Denies: flank pain Musc: Denies: neck pain Skin/Breast: Reports: rash and lesions Neuro: Reports: difficulty walking and Slurred speech present Psych: Denies: anxiety Endo: Denies: polyuria James/Lymph: Denies: easy bruising All/Imm: Denies: urticaria Medications/Allergies Home Medications Medication Instructions Recorded Confirmed Last Taken Type cetirizine 10 mg capsule (Zyrtec) 10 mg PO DAILY PRN Allergy Symptoms 11/21/21 01/05/22 Unknown History acetaminophen 500 mg tablet 1,000 mg PO QID PRN Pain 01/05/22 01/05/22 01/05/22 History tamsulosin 0.4 mg capsule 0.4 mg PO BID 09/06/2701/05/22 01/05/22 History sulfamethoxazole 800 1 tab PO BID 10 days #20 tabs 01/09/22 Unknown Rx mg-trimethoprim 160 mg tablet (Bactrim DS) enzalutamide 40 mg capsule 160 mg PO DAILY #120 caps 01/12/22 Unknown Rx bicalutamide 50 mg tablet 50 mg PO DAILY #30 tabs 01/22/22 Unknown Rx Allergies Allergy/AdvReac Type Severity Reaction Status Date / Time No Known Allergies Allergy Unverified 01/05/22 11:12 PFSH Acute PFSH: Medical History Prostate cancer Surgical History History of prostate biopsy (10/18/21) TRUSP/biopsy Family History Father , AT 40 of unknown cause Mother , AT 88 Dementia Other CAD (coronary artery disease) Cancer Denies family history of Diabetes Clotting disorder Hyperlipidemia Psychiatric illness Chronic kidney disease (CKD) Suicide Anesthesia complication Bleeding disorder Lung disease Hypertension Stroke Social History Smoking and tobacco status: current every day smoker (1 ppd, smoked x 57 years) cigarettes Packs smoked per day: 1 Years cigarettes smoked: 50 Alcohol intake: never Marital status: Current occupational status: employed History of recent travel: No Vitals/I&O/Wt Last Vital Signs Temp 97.9 F 02/03/22 10:08 Pulse 90 02/03/22 10:23 Resp 20 H 02/03/22 10:23 BP 169/96 02/03/22 10:23 Pulse Ox 94 02/03/22 10:23 O2 Del Method 02/03/22 10:23 02/02/22 02/03/22 02/03/22 22:59 06:59 14:59 Intake Total 73.6 / 73.6 Balance 73.6 / 73.6 Weight last 48 hrs Weight 81.647 kg Physical Exam Narrative: NIH 11 Left-sided facial droop Left arm weakness able to move arm along horizontal axis Able to lift his left leg against gravity to some extent Able to comprehend my questions Hemodynamically stable Currently on room air at the bedside S1, S2 Abdomen soft Looks euvolemic Pleasant and cooperative during my evaluation No audible stridor or wheezing Data : 02/03/22 10:15 02/03/22 10:15 A&P Assessment and plan (1) Prostate cancer: (2) Acute CVA (cerebrovascular accident): Plan Acute CVA tPA given within 11 minutes NIH 11 Will need PT/OT/ST We will give him pur?ed diet for now Allow permissive hypertension but only give IV labetalol if blood pressure above 180/105 mmHg Keep him normothermic and euglycemic Requested MARIYA, protein C, protein S activity Requested echo We will start high-dose atorvastatin Start aspirin Plavix 24 hours a tPA Patient and both want to go home with home health services they do not prefer penitentiary placement Full code Continue prostate cancer medication along tamsulosin Attestations Medical Necessity Statement*: Anticipating discharge within 48 hours Time Spent in Patient Care: 40 Coding Level of Care Code Acute Apartment Community Assistant Manager for Heidy Norman Diagnoses Prostate cancer C61 Acute CVA (cerebrovascular accident) I63.9
--- NOTE | 2022-02-03 13:17 | USCV_ITS ---
Gamaliel Gallego Age: 76 Gender: M : 1945 Exam Date: 02/03/2022 13:28 Ordering Phys: Melisa Blakely MD Technologist: Edy Ley Exam Location: [facility] [place] Indication: cva BP: 140 / 81 HR: 89 Rhythm: Sinus Technical Quality: Adequate MEASUREMENTS (Male / Female) Normal Values 2D ECHO LV Diastolic Diameter PLAX 4.6 cm 4.2 - 5.9 / 3.9 - 5.3 cm LV Systolic Diameter PLAX 3.0 cm IVS Diastolic Thickness 1.1 cm 0.6 - 1.0 / 0.6 - 0.9 cm IVS Systolic Thickness 1.2 cm LVPW Diastolic Thickness 1.3 cm 0.6 - 1.0 / 0.6 - 0.9 cm LVPW Systolic Thickness 1.4 cm LVOT Diameter 2.1 cm LV Ejection Fraction 2D Teich 63.0 % LV Ejection Fraction MOD 2C 54.6 % LV Ejection Fraction 2C AL 54.5 % LA Diameter 3.7 cm LA Width 5.6 cm Aorta at Sinotubular Diameter 2.6 cm IVC Diameter 1.7 cm M-MODE Aortic Annulus Diameter 4.2 cm LA Ao Ratio MM 0.9 MV E Point Septal Separation 1.4 cm DOPPLER AV Peak Velocity 106.0 cm/s LVOT Peak Velocity 91.0 cm/s AV Area Cont Eq vti 3.4 cm squared AV Area Cont Eq pk 3.0 cm squared MV Area PHT 5.0 cm squared Mitral E to A Ratio 0.5 MV E' Velocity 27.0 cm/s Mitral E to MV E' Ratio 6.9 Mitral E to LV E' Lateral Ratio 6.4 Mitral E to LV E' Septal Ratio 7.7 TR Peak Velocity 121.7 cm/s TR Peak Gradient 5.9 mmHg TV Peak E Velocity 93.0 cm/s Right Atrial Pressure 3.0 mmHg Pulmonary Artery Systolic Pressu 8.9 mmHg PV Peak Velocity 62.0 cm/s RV Acceleration Time 0.2 s FINDINGS Left Ventricle Left ventricle is normal in size. LV systolic function is normal with EF of 55 to 60%. No regional wall motion abnormalities are seen. Grade 1 diastolic dysfunction Right Ventricle Normal in size and function Right Atrium Normal in size Left Atrium Normal in size Mitral Valve Mild mitral annular calcification seen. Aortic Valve Grossly normal. No significant stenosis or regurgitation. Tricuspid Valve Trace tricuspid regurgitation. Insufficient TR jet to evaluate RVSP Pulmonic Valve Not well-visualized Pericardium Normal Aorta Normal in size IVC CONCLUSIONS LV systolic function is normal with EF 55 to 60%. No regional wall motion abnormalities are seen. Grade 1 diastolic dysfunction Mild mitral annular calcification is seen. Trace tricuspid regurgitation No comparison studies are available Pawel Alexis MD (Electronically Signed) Final Date: 03 February 2022 21:58 S
[2022-02-03 14:41] LABS: Chol HDL Ratio 5.18 mg/dL (1.0-5.00); Cholesterol 202 mg/dL (0-200); HDL Cholesterol 39 mg/dL (60-100); LDL Cholesterol Calculated 132 mg/dL (50-129); LDL HDL Ratio 3.38 RATIO (0.00-3.22); Thyroid Stimulating Hormone 2.71 uIU/mL (0.27-4.20); Triglycerides 153 mg/dL (0-150)
[2022-02-03 14:48] LABS: Estmated Average Glucose 114; Hemoglobin A1C 5.6 % (4.0-6.0)
--- NOTE | 2022-02-03 16:50 | PC.NURSE ---
Pt arrives to ICU from ED. NIH scale completed with GE Benson from Emergency Room. Bilat IVs noted. Pt O2sats 96% room air. Room orientation: Call light, bed controls, TV remote provide.
--- NOTE | 2022-02-03 17:37 | CTR_ITS ---
PROCEDURE INFORMATION: Exam: CT Head Without Contrast Exam date and time: 02/03/2022 6:14 PM Age: 76 years old Clinical indication: Injury or trauma; Fall; Blunt trauma (contusions or hematomas); Without loss of consciousness; Injury date: 02/03/2022; Injury details: Left sided weakness, had tpa earlier, fell in bathroom; Additional info: Follow up after fall TECHNIQUE: Imaging protocol: Computed tomography of the head without contrast. Radiation optimization: All CT scans at this facility use at least one of these dose optimization techniques: automated exposure control; mA and/or kV adjustment per patient size (includes targeted exams where dose is matched to clinical indication); or iterative reconstruction. COMPARISON: CT head wo con* [id number] 02/03/2022 10:59 AM RADIATION DOSE METRICS: Total DLP (mGy-cm): 1206.68 FINDINGS: Brain: There is moderate cerebral atrophy. There is mild diffuse heterogeneity of the white matter attenuation, consistent with chronic white matter ischemic changes. Negative for intracranial hemorrhage. Negative for intracranial mass. Negative for midline shift of the brain. Cerebral ventricles: No ventriculomegaly. Paranasal sinuses: Probable left maxillary sinus mucous retention cyst. Scattered mucosal thickening bilateral ethmoid air cells. Mastoid air cells: Visualized mastoid air cells are well aerated. Bones/joints: Unremarkable. No acute fracture. Soft tissues: Unremarkable. CT/CT head wo con* [id number] IMPRESSION: Negative for acute intracranial abnormality.
--- NOTE | 2022-02-03 19:15 | PC.NURSE ---
Heber report completed with GE Burciaga. NIH scale also completed. Dysarthria slightly improved.
[2022-02-03] MEDS: tamsulosin 0.4 mg Capsule PO (19:19)
--- NOTE | 2022-02-03 19:47 | PC.NURSE ---
Shift Note: Pt arrived near end of shift. NIH scale remains a 4. No pain per patient. Pt needed to urinate, urinal provided, pt instructed to remain in bed. Pt was then found in bathroom floor. Per patient he decided to go to the restroom and his bad leg (the affected leg on left) gave out. He continued that he grabbed the bar and lowered himself. He insists he did not hit his head or any other part of his body. Dr Grajeda examined him. Another CT ordered and completed as precaution. His called for an update and was informed of incident and precautionary action of CT, VSS no injuries noted. Frequent safety and comfort rounds continue. Orders and/or nursing care completed as indicated. Patient monitored for response to intervention and treatment(s). Education provided includes TPA, bedrest, and plan of care. Patient and/or inside sales account representative verbalized understanding of plan of care. Will continue to monitor.
[2022-02-03] MEDS: acetaminophen 500 mg Tablet PO (23:31)
[2022-02-04] VITALS (97 sets, daily range): BP systolic 121–172; BP diastolic 53–97; PULSE 57–110; RESP 1–29; TEMP 36.6–36.7; O2SAT 89–97
--- NOTE | 2022-02-04 05:00 | CTR_ITS ---
PROCEDURE INFORMATION: Exam: CT Head Without Contrast Exam date and time: 02/04/2022 4:54 AM Age: 76 years old Clinical indication: Other: CVA post tpa TECHNIQUE: Imaging protocol: Computed tomography of the head without contrast. Radiation optimization: All CT scans at this facility use at least one of these dose optimization techniques: automated exposure control; mA and/or kV adjustment per patient size (includes targeted exams where dose is matched to clinical indication); or iterative reconstruction. COMPARISON: CT head wo con* [id number] 02/03/2022 6:14 PM RADIATION DOSE METRICS: Total DLP (mGy-cm): 1010.1 FINDINGS: Brain: Bilateral basal ganglia and thalamic lacunar infarcts again demonstrated, along with right cerebellar encephalomalacia. Symmetric prominence of the cortical sulci. Vascular, basal ganglia, and dural calcifications. Cerebral ventricles: Stable configuration of the ventricles. Paranasal sinuses: Bilateral ethmoid and maxillary sinus fluid. Mastoid air cells: No mastoid effusion. Bones/joints: No acute calvarial pathology. Soft tissues: Unremarkable soft tissues. CT/CT head wo con* [id number] IMPRESSION: 1. Bilateral basal ganglia and thalamic lacunar infarcts again demonstrated. 2. Additional findings as described above.
[2022-02-04 05:39] LABS: Basophils % 0.4 %; Eosinophils # 0.2 10^3/uL (0.0-0.8); Eosinophils % 2.2 %; Hematocrit 42.9 % (42.0-52.0); Hemoglobin 14.4 g/dL (11.7-16.6); Lymphocytes # 2.2 10^3/uL (0.8-4.8); Lymphocytes % 21.8 %; Mean Corpuscular HGB Conc 33.6 g/dL (30.0-36.0); Mean Corpuscular Hemoglobin 29.3 pg (28.0-34.0); Mean Corpuscular Volume 87.4 fl (80-94); Mean Platelet Volume 8.5 fL (7.4-10.4); Monocytes # 0.8 10^3/uL (0.2-0.9); Monocytes % 8.3 %; Neutrophils # 6.71 10^3/uL (1.8-7.7); Neutrophils % 66.8 %; Nucleated Red Blood Cells % 0 %; Platelet Count 543 10^3/cmm (130-400); Red Blood Count 4.91 10^6/uL (4.1-5.3); Red Cell Distribution Width 14.1 % (12.1-15.1)
[2022-02-04 06:12] LABS: Anion Gap 12.8 (5-19); Blood Urea Nitrogen 13 mg/dL (8-23); Calcium 9.9 mg/dL (8.5-10.5); Carbon Dioxide 26 mmol/L (22-29); Chloride 98 mmol/L (98-107); Glucose 103 mg/dL (65-115); Osmolality Calculated 276 mOsm/kg (285-295); Potassium 3.8 mmol/L (3.5-5.1); Sodium 133 mmol/L (136-145)
--- NOTE | 2022-02-04 06:55 | PC.NURSE ---
Bedside report completed with Gualberto Salinas RN. NIH scale completed. Score is the same at 4, but his left arm scored worse and his left leg score improved.
[2022-02-04] MEDS: tamsulosin 0.4 mg Capsule PO ×2 (09:58→17:50)
[2022-02-04] MEDS: atorvastatin 40 mg Tablet PO (09:58)
[2022-02-04] MEDS: acetaminophen 500 mg Tablet PO (10:25)
--- NOTE | 2022-02-04 11:45 | P.PN_ITS ---
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 Can be transferred upstairs to [facility] Vitals/I&O/Wt Last Vital Signs Temp 97.8 F 02/04/22 06:00 Pulse 98 02/04/22 10:00 Resp 22 H 02/04/22 10:00 BP 153/82 02/04/22 10:00 Pulse Ox 91 02/04/22 09:30 O2 Del Method 02/04/22 09:30 O2 Flow Rate 2 02/03/22 15:37 02/03/22 02/04/22 02/04/22 22:59 06:59 14:59 Intake Total 100 / 173.6 500 / 500 Output Total 325 / 325 225 / 225 Balance 100 / 173.6 -325 / -151.4 275 / 275 Weight last 48 hrs Weight 81.647 kg Physical Exam Narrative: Left-sided weakness Recommend PT and OT Speech therapy recommended modified diet No overnight events Yesterday patient had a little formal in the room she did not hit his head CT head unremarkable No worsening of weakness Abdomen soft S1, S2 Nonfocal neuro exam Data : 02/04/22 05:15 02/04/22 05:15 A&P Assessment and plan (1) Acute CVA (cerebrovascular accident): Plan Acute stroke Status post tPA Continue PT OT ST Will start aspirin tomorrow continue on atorvastatin Goal blood pressures 180s/105 allow permissive hypertension Afebrile Will need correction placement Full code Modified diet DVT prophylaxis SCDs Shows preserved ejection fraction Attestations Medical Necessity Statement*: Awaiting placement Time Spent in Patient Care: 40 Coding Level of Care Code Acute Forms Builder for Jonig Fwd Diagnoses Acute CVA (cerebrovascular accident) I63.9
--- NOTE | 2022-02-04 14:10 | PC.NURSE ---
Report given via telephone to GE Young on MedSurg/CSU.
--- NOTE | 2022-02-04 14:31 | PC.NURSE ---
Transfer Note Patient transferred to [address] [place] [address] from ICU via Wheel chair. Handoff received from Ava [place]. Patient oriented to environment and equipment. Covering service notified. Orders reviewed and will continue to monitor. Family and/or communications representative notified.
--- NOTE | 2022-02-04 14:35 | PC.NURSE ---
Pt transferred to [place] [address], CSU bed. Bedside report completed with GE Young. NIH scale completed, score of 4. No changes from previous NIH. Call light, TV, and ligt switch oreintation done. at bedside.
--- NOTE | 2022-02-04 14:46 | NPU.GN ---
Medical Surgical Floor Group Topic: General Mood of Group
--- NOTE | 2022-02-04 15:05 | XRR_ITS ---
PROCEDURE INFORMATION: Exam: XR Chest Exam date and time: 02/04/2022 3:34 PM Age: 76 years old Clinical indication: Shortness of breath; Additional info: SOB TECHNIQUE: Imaging protocol: Radiologic exam of the chest. Views: 1 view. COMPARISON: CR XR chest 1V portable [id number] 01/05/2022 12:55 PM FINDINGS: Lungs: Emphysematous change and interstitial prominence. Pleural spaces: No pleural effusion. Heart/Mediastinum: Epicardial fat, without cardiomegaly. Vasculature: Calcification of the thoracic aorta. Bones/joints: Osteopenia and degenerative change. XR/XR chest 1V portable [id number] IMPRESSION: Emphysematous change and interstitial prominence.
[2022-02-04] MEDS: temazepam 15 mg Capsule PO (21:52)
[2022-02-05] VITALS (11 sets, daily range): BP systolic 113–148; BP diastolic 62–77; PULSE 72–100; RESP 18–24; TEMP 36.6–36.8; O2SAT 90–100
[2022-02-05 05:11] LABS: Basophils # 0.1 10^3/uL (0.0-0.1); Basophils % 0.6 %; Eosinophils # 0.6 10^3/uL (0.0-0.8); Eosinophils % 6.3 %; Hematocrit 39.9 % (42.0-52.0); Hemoglobin 13.6 g/dL (11.7-16.6); Lymphocytes # 2.3 10^3/uL (0.8-4.8); Lymphocytes % 25.8 %; Mean Corpuscular HGB Conc 34.1 g/dL (30.0-36.0); Mean Corpuscular Hemoglobin 29.6 pg (28.0-34.0); Mean Corpuscular Volume 86.9 fl (80-94); Mean Platelet Volume 8.2 fL (7.4-10.4); Monocytes # 0.8 10^3/uL (0.2-0.9); Monocytes % 9.3 %; Neutrophils # 5.11 10^3/uL (1.8-7.7); Neutrophils % 57.5 %; Nucleated Red Blood Cells % 0 %; Platelet Count 500 10^3/cmm (130-400); Red Blood Count 4.59 10^6/uL (4.1-5.3); Red Cell Distribution Width 14.1 % (12.1-15.1); White Blood Count 8.9 10^3/uL (4.0-10.0)
[2022-02-05 05:33] LABS: Anion Gap 10.9 (5-19); Blood Urea Nitrogen 13 mg/dL (8-23); Calcium 9.7 mg/dL (8.5-10.5); Carbon Dioxide 26 mmol/L (22-29); Chloride 101 mmol/L (98-107); Glucose 92 mg/dL (65-115); Osmolality Calculated 278 mOsm/kg (285-295); Potassium 3.9 mmol/L (3.5-5.1); Sodium 134 mmol/L (136-145)
[2022-02-05 06:29] LABS: Glucose Point of Care 92 mg/dL (70-110)
[2022-02-05] MEDS: atorvastatin 40 mg Tablet PO (09:24)
[2022-02-05] MEDS: lisinopril 2.5 mg Tablet PO (09:24)
[2022-02-05] MEDS: aspirin 81 mg EC Tablet PO (09:24)
[2022-02-05] MEDS: tamsulosin 0.4 mg Capsule PO ×2 (09:24→17:42)
--- NOTE | 2022-02-05 10:46 | PM.PN ---
Subjective Subjective: Patient is awaiting placement No acute worsening of weakness Working with PT OT and ST Vitals/I&O/Wt Last Vital Signs Temp 98.2 F 02/05/22 08:00 Pulse 72 02/05/22 08:00 Resp 18 02/05/22 08:00 BP 148/76 02/05/22 08:00 Pulse Ox 95 02/05/22 08:00 O2 Del Method 02/05/22 08:00 O2 Flow Rate 2 02/03/22 15:37 02/04/22 02/05/22 02/05/22 22:59 06:59 14:59 Intake Total 360 / 960 200 / 1160 Output Total 500 / 835 Balance -140 / 125 200 / 325 Physical Exam Narrative: No new weakness Left-sided weakness experience at the same level as yesterday No acute worsening On dysphagia diet Awake and alert Cooperative and pleasant at the bedside S1, S2 Currently on room air Hemodynamically stable Looks euvolemic Data : 02/05/22 04:52 02/05/22 04:52 A&P Assessment and plan (1) Acute CVA (cerebrovascular accident): Plan Acute CVA bilateral basal ganglia and thalamic lacunar infarct Hemodynamically stable Patient is stable Afebrile Awaiting placement, he is extremely weak cannot take care of him at home Daily PT OT ST Currently on dysphagia diet DVT prophylaxis on board Started aspirin, Plavix, high-dose intensity statin echo unremarkable MARIYA pending Attestations Medical Necessity Statement*: Awaiting placement Time Spent in Patient Care: 40 Coding Level of Care Code Acute Informatics Consultant for Heidy Norman Diagnoses Acute CVA (cerebrovascular accident) I63.9
--- NOTE | 2022-02-05 12:31 | PC.CHAP ---
Pastoral Care Encounter/Spiritual Assessment Type of Contact [] Declined grout pump operator visit [] Patient/Family/Request visit [] Outpatient visit [] Follow-up visit [] Physician referral [] Code/Alert [x] Routine visit [] Staff referral [] Actively dying [] Patient sleeping [] Family support [] [] Out of room [] Palliative care [] [] Receiving care in room [] Pre-surgical visit [] Trauma [] Long length of stay [] ICU visit [] Other: Relational/Emotional Strength [x] Patient feels connected with others/family/visitors/staff [] Distress [] Loneliness/isolation [] Abandonment Spirituality of Patient [x] Person of Ashley [] Attends Uatsdin of their Ashley [x] Believes in Prayer [] Reads Bible or Bahai materials [] There are Spiritual issues to be addressed Bill Poster Installer Interventions [x] Prayer [] Active listening [] Non-anxious presence [] Spiritual/emotional support [] Crisis/trauma care [] Spiritual counseling [] Bereavement support [] Provided bereavement packet [] Provided Bible/devotional materials [] Provided toy/stuffed animal, coloring book to patient or family member [] Provided Communion [] Anointing/[place] [] Salvation [] Completed spiritual assessment [] Other: Impact on Illness or Injury [] Angry [] Fearful [] Anxious [] Often cries [] Exhaustion [] Unable to work [] Unable to attend restorationism [] Unable to walk/stand [] Unable to read [] Unable to drive [] Unable to eat/drink [] Unable to sleep [] Unable to be with family [] Patient intubated [] Other: Summary Time spent with patient 10 min
[2022-02-05] MEDS: clopidogrel 75 mg Tablet PO (13:23)
[2022-02-05 20:21] LABS: Glucose Point of Care 100 mg/dL (70-110)
[2022-02-05] MEDS: temazepam 15 mg Capsule PO (21:02)
[2022-02-06] VITALS (7 sets, daily range): BP systolic 114–135; BP diastolic 60–81; PULSE 44–92; RESP 16–20; TEMP 36.6–36.9; O2SAT 91–96
[2022-02-06 06:12] LABS: Glucose Point of Care 100 mg/dL (70-110)
[2022-02-06] MEDS: aspirin 81 mg EC Tablet PO (07:48)
[2022-02-06] MEDS: tamsulosin 0.4 mg Capsule PO ×2 (07:48→16:37)
[2022-02-06] MEDS: lisinopril 2.5 mg Tablet PO (07:48)
[2022-02-06] MEDS: clopidogrel 75 mg Tablet PO (07:48)
[2022-02-06] MEDS: atorvastatin 40 mg Tablet PO (07:48)
--- NOTE | 2022-02-06 10:50 | P.PN_ITS ---
Subjective Subjective: Awaiting placement, discharge later today versus tomorrow Working with PT No overnight events As per the he is back to his baseline Vitals/I&O/Wt Last Vital Signs Temp 97.9 F 02/06/22 08:00 Pulse 76 02/06/22 08:00 Resp 18 02/06/22 08:00 BP 127/64 02/06/22 08:00 Pulse Ox 93 02/06/22 08:00 O2 Del Method 02/06/22 08:00 O2 Flow Rate 2 02/03/22 15:37 02/05/22 02/06/22 02/06/22 22:59 06:59 14:59 Intake Total 1080 / 1180 120 / 1300 Balance 1080 / 1030 120 / 1150 Physical Exam Narrative: Left leg weakness is improved Left arm weakness history of present No worsening Awake and alert In good spirits Family at the bedside S1, S2 Looks dehydrated Currently on room air Hemodynamic stable Abdomen soft Data : 02/05/22 04:52 02/05/22 04:52 A&P Assessment and plan (1) Acute CVA (cerebrovascular accident): (2) Prostate cancer: Plan Awaiting placement Acute CVA status post tPA Left-sided weakness Will need short-term rehab Continue aspirin and Plavix along with statins 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
[2022-02-06] MEDS: temazepam 15 mg Capsule PO (20:22)
[2022-02-07] VITALS (7 sets, daily range): BP systolic 121–136; BP diastolic 62–78; PULSE 44–84; RESP 16–22; TEMP 36.6–36.8; O2SAT 90–95
[2022-02-07 08:03] LABS: Anti-Nuclear Antibody Screen NEGATIVE (NEGATIVE)
[2022-02-07] MEDS: atorvastatin 40 mg Tablet PO (09:03)
[2022-02-07] MEDS: aspirin 81 mg EC Tablet PO (09:03)
[2022-02-07] MEDS: tamsulosin 0.4 mg Capsule PO (09:03)
[2022-02-07] MEDS: lisinopril 2.5 mg Tablet PO (09:03)
[2022-02-07] MEDS: clopidogrel 75 mg Tablet PO (09:04)
--- NOTE | 2022-02-07 09:47 | PC.CHAP ---
Pastoral Care Encounter/Spiritual Assessment Type of Contact [] Declined rebeamer visit [] Patient/Family/Request visit [] Outpatient visit [] Follow-up visit [] Physician referral [] Code/Alert [x] Routine visit [] Staff referral [] Actively dying [] Patient sleeping [] Family support [] [] Out of room [] Palliative care [] [x] Receiving care in room [] Pre-surgical visit [] Trauma [] Long length of stay [] ICU visit [] Other: Relational/Emotional Strength [] Patient feels connected with others/family/visitors/staff [] Distress [] Loneliness/isolation [] Abandonment Spirituality of Patient [] Person of Ashley [] Attends Adventism of their Ashley [] Believes in Prayer [] Reads Bible or Orthodoxy materials [] There are Spiritual issues to be addressed Mesmerist Interventions [] Prayer [] Active listening [] Non-anxious presence [] Spiritual/emotional support [] Crisis/trauma care [] Spiritual counseling [] Bereavement support [] Provided bereavement packet [] Provided Bible/devotional materials [] Provided toy/stuffed animal, coloring book to patient or family member [] Provided Communion [] Anointing/[place] [] Salvation [] Completed spiritual assessment [] Other: Impact on Illness or Injury [] Angry [] Fearful [] Anxious [] Often cries [] Exhaustion [] Unable to work [] Unable to attend spiritism [] Unable to walk/stand [] Unable to read [] Unable to drive [] Unable to eat/drink [] Unable to sleep [] Unable to be with family [] Patient intubated [] Other: Summary Time spent with patient
[2022-02-07 10:09] LABS: SARS Covid-2 Antigen negative (Negative)
--- NOTE | 2022-02-07 10:54 | PM.DCS ---
Discharge Providers Date of Admission: 02/04/22 17:40 Date of Discharge: February 07, 2022 Attending Provider at Admission: Melisa Blakely MD Attending Provider at Discharge: Melisa Blakely MD Diagnoses at Discharge Discharge Diagnosis (1) Acute CVA (cerebrovascular accident): Status: Acute (2) Prostate cancer: Status: Acute Reason for Visit Reason for Visit: LEFT SIDED WEAKNESS Hospital Course Hospital Course 76-year-old male who suffered from left-sided stroke during hospitalization, received tPA, he remained hemodynamically stable, EKG showed sinus rhythm, protein S protein C activity reports are pending, COVID-negative, MARIYA screen negative, echo showed normal ejection fraction, he remained in sinus rhythm, CT head showed lacunar infarct of bilateral basal ganglia and thalamic area, he will finish 20 days of dual antiplatelet therapy. He has been referred to short-term rehab and then he will be able to return home. He did very well with PT OT and ST. He is currently on dysphagia level 4 diet with minced and moist consistency of food Physical Exam Narrative: Awake and alert Left arm weakness however able to use to some extent Left leg weakness has improved significantly Awake and alert No weakness on right side Left-sided facial droop and full Slurred speech Currently on room air S1, S2 Discharge Data Studies Completed and Pending Completed Studies During Hospitalization Category Date Time Status CT angio headneck* [id number] Stat Cat Scan 02/03/22 10:[address] head wo con* [id number] Routine Cat Scan 02/04/22 05:[address] head wo con* [id number] Stat Cat Scan 02/03/22 10:[address] head wo con* [id number] Stat Cat Scan 02/03/22 11:[address] head wo con* [id number] Stat Cat Scan 02/03/22 17:37 Completed XR chest 1V portable [id number] Routine Exams 02/04/22 15:05 Completed CV. echo complete* [id number] Stat Ultrasound 02/03/22 13:17 Completed Pending at discharge Category Date Time Status PROTEIN C, ACTIVITY Routine Lab 02/03/22 17:40 Received PROTEIN S, ACTIVITY Routine Lab 02/03/22 17:40 Received Radiology Impressions Head/Neck CTA 02/03/22 10:13 IMPRESSION: No large vessel stenosis or occlusion. IMPRESSION: No stenosis or occlusion. REFERENCES: NASCET CRITERIA. The degree of stenosis in the cervical segment of the internal carotid artery is based on NASCET criteria. Normal is no stenosis. Mild is less than 50% stenosis. Moderate is 50-69% stenosis. Severe is 70% to 99% stenosis. Total occlusion is no detectable patent lumen. Head CT 02/04/22 05:00 IMPRESSION: 1. Bilateral basal ganglia and thalamic lacunar infarcts again demonstrated. 2. Additional findings as described above. Chest X-Ray 02/04/22 15:05 IMPRESSION: Emphysematous change and interstitial prominence. Laboratory Results WBC 8.9 10^3/uL (4.0-10.0) 02/05/22 04:52 RBC 4.59 10^6/uL (4.1-5.3) 02/05/22 04:52 Hgb 13.6 g/dL (11.7-16.6) 02/05/22 04:52 Hct 39.9 % (42.0-52.0) L 02/05/22 04:52 MCV 86.9 fl (80-94) 02/05/22 04:52 MCH 29.6 pg (28.0-34.0) 02/05/22 04:52 MCHC 34.1 g/dL (30.0-36.0) 02/05/22 04:52 RDW 14.1 % (12.1-15.1) 02/05/22 04:52 Plt Count 500 10^3/cmm (130-400) H 02/05/22 04:52 MPV 8.2 fL (7.4-10.4) 02/05/22 04:52 Neut % (Auto) 57.5 % 02/05/22 04:52 Lymph % (Auto) 25.8 % 02/05/22 04:52 [place] % (Auto) 9.3 % 02/05/22 04:52 Eos % (Auto) 6.3 % 02/05/22 04:52 Baso % (Auto) 0.6 % 02/05/22 04:52 Neut # (Auto) 5.11 10^3/uL (1.8-7.7) 02/05/22 04:52 Lymph # (Auto) 2.3 10^3/uL (0.8-4.8) 02/05/22 04:52 [place] # (Auto) 0.8 10^3/uL (0.2-0.9) 02/05/22 04:52 Eos # (Auto) 0.6 10^3/uL (0.0-0.8) 02/05/22 04:52 Baso # (Auto) 0.1 10^3/uL (0.0-0.1) 02/05/22 04:52 Nucleated RBC % (auto) 0 % 02/05/22 04:52 Nucleated RBCs # 0.0 /100WBC 02/05/22 04:52 PT 13.60 SECONDS (12.1-14.9) 02/03/22 10:15 INR 1.01 (0.8-1.2) 02/03/22 10:15 APTT 28.1 SECONDS (23.9-36.7) 02/03/22 10:15 Sodium 134 mmol/L (136-145) L 02/05/22 04:52 Potassium 3.9 mmol/L (3.5-5.1) 02/05/22 04:52 Chloride 101 mmol/L (98-107) 02/05/22 04:52 Carbon Dioxide 26 mmol/L (22-29) 02/05/22 04:52 Anion Gap 10.9 (5-19) 02/05/22 04:52 BUN 13 mg/dL (8-23) 02/05/22 04:52 Creatinine 0.7 mg/dL (0.7-1.2) 02/05/22 04:52 GFR Calculation Not Reportable 02/05/22 04:52 Glucose 92 mg/dL (65-115) 02/05/22 04:52 POC Glucose 100 mg/dL (70-110) 02/06/22 06:07 Estimat Average Glucose 114 02/03/22 10:15 Hemoglobin A1c 5.6 % (4.0-6.0) 02/03/22 10:15 Calculated Osmolality 278 mOsm/kg (285-295) L 02/05/22 04:52 Calcium 9.7 mg/dL (8.5-10.5) 02/05/22 04:52 Total Bilirubin 0.4 mg/dL (0.15-1.2) 02/03/22 10:15 AST 22 U/L (0-40) 02/03/22 10:15 ALT 18 U/L (0-41) 02/03/22 10:15 Alkaline Phosphatase 104 U/L (40-130) 02/03/22 10:15 Total Protein 8.1 g/dL (6.6-8.7) 02/03/22 10:15 Albumin 3.8 g/dL (3.5-5.2) 02/03/22 10:15 Globulin 4.3 g/dL (1.3-4.6) 02/03/22 10:15 Triglycerides 153 mg/dL (0-150) H 02/03/22 10:15 Cholesterol 202 mg/dL (0-200) H 02/03/22 10:15 LDL Cholesterol, Calc 132 mg/dL (50-129) H 02/03/22 10:15 HDL Cholesterol 39 mg/dL (60-100) L 02/03/22 10:15 LDL/HDL Ratio 3.38 RATIO (0.00-3.22) H 02/03/22 10:15 Cholesterol/HDL Ratio 5.18 mg/dL (1.0-5.00) H 02/03/22 10:15 TSH 2.71 uIU/mL (0.27-4.20) 02/03/22 10:15 Urine Color Yellow (Yellow) 02/03/22 10:32 Urine Appearance Clear (CLEAR) 02/03/22 10:32 Urine pH 7.0 (5-7) 02/03/22 10:32 Ur Specific [place] 1.015 (1.005-1.030) 02/03/22 10:32 Urine Protein Negative 02/03/22 10:32 Urine Glucose (UA) Negative (Normal) 02/03/22 10:32 Urine Ketones Negative (Negative) 02/03/22 10:32 Urine Blood Negative (Negative) 02/03/22 10:32 Urine Nitrate Negative 02/03/22 10:32 Urine Bilirubin Negative (Negative) 02/03/22 10:32 Urine Urobilinogen 0.2 mg/dL (Negative) 02/03/22 10:32 Ur Leukocyte Esterase Negative (Negative) 02/03/22 10:32 Urine Opiates Screen Negative ng/mL (Negative) 02/03/22 10:32 Ur Barbiturates Screen Negative ng/mL (Negative) 02/03/22 10:32 Ur Phencyclidine Scrn Negative ng/mL (Negative) 02/03/22 10:32 Ur Amphetamines Screen Negative ng/mL (Negative) 02/03/22 10:32 U Benzodiazepines Scrn Negative ng/mL (Negative) 02/03/22 10:32 Urine Cocaine Screen Negative ng/mL (Negative) 02/03/22 10:32 U Marijuana (THC) Screen Negative ng/mL (Negative) 02/03/22 10:32 MARIYA Screen Negative (NEGATIVE) 02/04/22 05:21 SARS-CoV-2 Ag (Rapid) negative (Negative) 02/07/22 09:40 Vitals Last Vital Signs Temp 98.2 F 02/07/22 07:55 Pulse 76 02/07/22 08:00 Resp 16 02/07/22 08:00 BP 134/78 02/07/22 07:55 Pulse Ox 90 02/07/22 08:00 O2 Del Method 02/07/22 08:00 O2 Flow Rate 2 02/06/22 20:00 Discharge Plan Discharge Patient Disposition: Xfer SNF Condition: Stable Prescriptions: New atorvastatin 40 mg Tablet 40 mg PO DAILY Qty: 90 2RF lisinopril 2.5 mg Tablet 2.5 mg PO DAILY Qty: 30 0RF clopidogrel 75 mg Tablet 75 mg PO DAILY Qty: 20 0RF aspirin 81 mg Tablet,Delayed Release (Dr/Ec) 81 mg PO DAILY Qty: 60 3RF Continued Zyrtec 10 mg capsule 10 mg PO DAILY PRN (Reason: Allergy Symptoms) enzalutamide 40 mg capsule 160 mg PO DAILY Qty: 120 0RF Hold Instructions: Doctor's Order tamsulosin 0.4 mg capsule 0.4 mg PO BID acetaminophen [Tylenol Ex Str Rapid Release] 500 mg Tablet 1,000 mg PO QID PRN (Reason: Pain) Discharge Orders: Discharge Order (Routine); Ordered 02/07/22 Ordered By: Melisa Blakely Discharge Diet: As Directed Discharge Activity: As per PT/OT instructions Patient Instructions: Self Care Measures After a Stroke (DC), Stroke (DC), Aspiration Precautions (DC), Stroke Stoplight Patient's Health Concerns: Please take Plavix along aspirin for 20 days and then you will continue aspirin and atorvastatin along your prostate cancer medications You are on minced and moist dysphagia level 5 diet Discharge Attestations Time Spent in Discharge Care*: less than 30 min Quality Metrics Clinical Quality Measures [ No reported AMI, CVA or VTE this stay] Coding Level of Care Code Acute Chg FW DC note Diagnoses Acute CVA (cerebrovascular accident) I63.9 Prostate cancer C61
--- NOTE | 2022-02-07 12:41 | PC.NURSE ---
discharge to snf report given to gerry daley on pt's discharge meds and orders. to transport pt to snf.
[2022-02-09 02:39] LABS: PROTEIN C, ACTIVITY 125 % normal (70-180)
[2022-02-09 22:04] LABS: PROTEIN S, ACTIVITY 81 % normal (70-150)
== END 2022-02-07 12:40 | disposition skilled nursing facility (03) | DRG 62 ==
LOC: ER 10:56 → ER IP 14:06 → ICU 19:19 → MEDSURG 02-04 14:20
PROVIDERS: Admitting Provider Internal Medicine; Emergency Provider Family Medicine; Visit Provider Internal Medicine
DX: I63.81 Other cerebral infarction due to occlusion or stenosis of small artery (principal); C77.5 Secondary and unspecified malignant neoplasm of intrapelvic lymph nodes; G81.94 Hemiplegia, unspecified affecting left nondominant side; C79.51 Secondary malignant neoplasm of bone; R13.10 Dysphagia, unspecified; R29.810 Facial weakness; R29.711 NIHSS score 11; C61 Malignant neoplasm of prostate; Z19.1 Hormone sensitive malignancy status; F17.210 Nicotine dependence, cigarettes, uncomplicated; Z79.899 Other long term (current) drug therapy
CPT/HCPCS: 36415; 36416; 70450; 70496; 70498; 71045; 80048; 80053; 80061; 80306; 81003; 82962; 83036; 84443; 85025; 85303; 85306; 85610; 85730; 86038; 87426; 92507; 92523; 92526; 92610; 93005; 93306; 96374; 97110; 97116; 97161; 97166; 97530; 97535; 99285; G0378; J2997; Q9967

== ENCOUNTER 2022-02-22 13:55 | Oncology outpatient (recurring) (ONCR) | payer MEDICARE, SELFPAY | END 2022-03-05 23:59 | disposition home or self-care (01) | LOC: ONCMED 13:56 | PROVIDERS: Visit Provider Internal Medicine Medical Oncology | DX: C61 Malignant neoplasm of prostate (principal) | CPT/HCPCS: 36415; 84153 ==

== ENCOUNTER 2022-03-07 06:00 | Outpatient (RCR) | payer MEDICARE, SELFPAY | END 2022-04-04 23:59 | disposition home or self-care (01) | LOC: APT 06:00 | PROVIDERS: Visit Provider Internal Medicine | DX: I63.9 Cerebral infarction, unspecified (principal) | CPT/HCPCS: 97110; 97112; 97116; 97163; 97530 ==

== ENCOUNTER 2022-04-02 08:54 | Oncology outpatient (recurring) (ONCR) | payer MEDICARE, SELFPAY ==
[2022-04-02 09:29] LABS: Basophils % 0.5 %; Eosinophils # 0.5 10^3/uL (0.0-0.8); Eosinophils % 6.8 %; Hematocrit 37.5 % (42.0-52.0); Hemoglobin 12.8 g/dL (11.7-16.6); Lymphocytes # 2.2 10^3/uL (0.8-4.8); Lymphocytes % 29.2 %; Mean Corpuscular HGB Conc 34.1 g/dL (30.0-36.0); Mean Corpuscular Hemoglobin 30.8 pg (28.0-34.0); Mean Corpuscular Volume 90.1 fl (80-94); Mean Platelet Volume 7.9 fL (7.4-10.4); Monocytes # 0.7 10^3/uL (0.2-0.9); Monocytes % 9.8 %; Nucleated Red Blood Cells % 0 %; Platelet Count 587 10^3/cmm (130-400); Red Blood Count 4.16 10^6/uL (4.1-5.3); White Blood Count 7.4 10^3/uL (4.0-10.0)
[2022-04-02 10:02] LABS: Alanine Aminotransferase 9 U/L (0-41); Albumin Level 3.8 g/dL (3.5-5.2); Alkaline Phosphatase 68 U/L (40-130); Anion Gap 12.9 (5-19); Aspartate Amino Transferase 14 U/L (0-40); Blood Urea Nitrogen 11 mg/dL (8-23); Calcium 9.8 mg/dL (8.5-10.5); Carbon Dioxide 25 mmol/L (22-29); Chloride 98 mmol/L (98-107); Globulin 3.3 g/dL (1.3-4.6); Glucose 79 mg/dL (65-115); Osmolality Calculated 272 mOsm/kg (285-295); Potassium 3.9 mmol/L (3.5-5.1); Prostate Specific Antigen 0.688 ng/mL (0-4); Sodium 132 mmol/L (136-145); Testosterone Total 6.1 ng/dL (193-740); Total Bilirubin 0.2 mg/dL (0.15-1.2); Total Protein 7.1 g/dL (6.6-8.7)
[2022-04-02] MEDS: leuprolide 22.5 mg Kit IM (10:54)
== END 2022-04-04 23:59 | disposition home or self-care (01) ==
PROVIDERS: Visit Provider Internal Medicine Medical Oncology
DX: C61 Malignant neoplasm of prostate (principal); C77.8 Secondary and unspecified malignant neoplasm of lymph nodes of multiple regions; C79.51 Secondary malignant neoplasm of bone; F17.210 Nicotine dependence, cigarettes, uncomplicated; Z79.818 Long term (current) use of other agents affecting estrogen receptors and estrogen levels; Z79.899 Other long term (current) drug therapy
CPT/HCPCS: 80053; 84153; 84403; 85025; 96402; 99214; J9217

== ENCOUNTER 2022-04-05 06:00 | Outpatient (RCR) | payer MEDICARE, SELFPAY | END 2022-05-05 23:59 | disposition home or self-care (01) | LOC: APT 06:00 | PROVIDERS: Visit Provider Internal Medicine | DX: I63.9 Cerebral infarction, unspecified (principal) | CPT/HCPCS: 97110; 97112; 97116; 97164 ==

== ENCOUNTER 2022-05-06 06:00 | Outpatient (RCR) | payer MEDICARE, SELFPAY | END 2022-06-05 23:59 | disposition home or self-care (01) | LOC: APT 06:00 | PROVIDERS: Visit Provider Internal Medicine | DX: I63.9 Cerebral infarction, unspecified (principal) | CPT/HCPCS: 97110; 97112 ==

== ENCOUNTER 2022-06-06 06:00 | Outpatient (RCR) | payer MEDICARE, SELFPAY | END 2022-07-03 23:59 | disposition home or self-care (01) | LOC: APT 06:00 | PROVIDERS: Visit Provider Internal Medicine | DX: I63.9 Cerebral infarction, unspecified (principal) | CPT/HCPCS: 97110; 97112; 97530 ==

== ENCOUNTER 2022-07-02 12:03 | Oncology outpatient (recurring) (ONCR) | payer MEDICARE, SELFPAY ==
[2022-07-02 13:40] LABS: Basophils # 0.1 10^3/uL (0.0-0.1); Basophils % 0.6 %; Eosinophils # 0.7 10^3/uL (0.0-0.8); Eosinophils % 9.3 %; Hematocrit 36.6 % (42.0-52.0); Lymphocytes # 2.8 10^3/uL (0.8-4.8); Lymphocytes % 35.8 %; Mean Corpuscular HGB Conc 32.8 g/dL (30.0-36.0); Mean Corpuscular Hemoglobin 29.5 pg (28.0-34.0); Mean Corpuscular Volume 89.9 fl (80-94); Mean Platelet Volume 8.5 fL (7.4-10.4); Monocytes # 0.8 10^3/uL (0.2-0.9); Neutrophils # 3.41 10^3/uL (1.8-7.7); Neutrophils % 43.9 %; Nucleated Red Blood Cells % 0 %; Platelet Count 632 10^3/cmm (130-400); Red Blood Count 4.07 10^6/uL (4.1-5.3); Red Cell Distribution Width 13.2 % (12.1-15.1); White Blood Count 7.8 10^3/uL (4.0-10.0)
[2022-07-02 14:11] LABS: Alanine Aminotransferase 10 U/L (0-41); Albumin Level 3.8 g/dL (3.5-5.2); Alkaline Phosphatase 73 U/L (40-130); Anion Gap 12.9 (5-19); Aspartate Amino Transferase 16 U/L (0-40); Blood Urea Nitrogen 11 mg/dL (8-23); Calcium 9.7 mg/dL (8.5-10.5); Carbon Dioxide 25 mmol/L (22-29); Chloride 102 mmol/L (98-107); Globulin 3.3 g/dL (1.3-4.6); Glucose 86 mg/dL (65-115); Osmolality Calculated 281 mOsm/kg (285-295); Potassium 3.9 mmol/L (3.5-5.1); Prostate Specific Antigen 0.063 ng/mL (0-4); Sodium 136 mmol/L (136-145); Total Bilirubin 0.2 mg/dL (0.15-1.2); Total Protein 7.1 g/dL (6.6-8.7)
[2022-07-02] MEDS: leuprolide 22.5 mg Kit IM (14:20)
[2022-07-17 10:33] LABS: CALR Exon 9 Mutation NOT DETECTED (NOT DETECTED); CSF3R Exon 14/17 Mutation NOT DETECTED (NOT DETECTED); JAK2 Exon 12 Mutation NOT DETECTED (NOT DETECTED); JAK2 V617 Block Specimen ID NG; JAK2 V617 Clinical Indication NG; JAK2 V617 Mutation NOT DETECTED (NOT DETECTED); JAK2 V617 Specimen Source EDTA; MPL Exon 12 Mutation NOT DETECTED (NOT DETECTED)
== END 2022-07-03 23:59 | disposition home or self-care (01) ==
PROVIDERS: PCP Internal Medicine; Visit Provider Internal Medicine Medical Oncology
DX: C61 Malignant neoplasm of prostate (principal); D47.3 Essential (hemorrhagic) thrombocythemia; C79.51 Secondary malignant neoplasm of bone; C77.8 Secondary and unspecified malignant neoplasm of lymph nodes of multiple regions; Z79.818 Long term (current) use of other agents affecting estrogen receptors and estrogen levels; Z79.01 Long term (current) use of anticoagulants; Z79.82 Long term (current) use of aspirin; I69.354 Hemiplegia and hemiparesis following cerebral infarction affecting left non-dominant side; F17.210 Nicotine dependence, cigarettes, uncomplicated
CPT/HCPCS: 36415; 80053; 81219; 81270; 81339; 81403; 81479; 84153; 85025; 96402; 99214; J9217

== ENCOUNTER 2022-09-24 12:45 | Oncology outpatient (recurring) (ONCR) | payer MEDICARE, SELFPAY ==
[2022-09-24 13:24] LABS: Basophils # 0.1 10^3/uL (0.0-0.1); Basophils % 0.5 %; Eosinophils % 10.1 %; Hematocrit 37.5 % (42.0-52.0); Hemoglobin 12.7 g/dL (11.7-16.6); Lymphocytes # 2.6 10^3/uL (0.8-4.8); Lymphocytes % 26.5 %; Mean Corpuscular HGB Conc 33.9 g/dL (30.0-36.0); Mean Corpuscular Hemoglobin 30.7 pg (28.0-34.0); Mean Corpuscular Volume 90.6 fl (80-94); Mean Platelet Volume 8.3 fL (7.4-10.4); Monocytes # 0.9 10^3/uL (0.2-0.9); Monocytes % 9.4 %; Neutrophils # 5.15 10^3/uL (1.8-7.7); Nucleated Red Blood Cells % 0 %; Platelet Count 672 10^3/cmm (130-400); Red Blood Count 4.14 10^6/uL (4.1-5.3); Red Cell Distribution Width 13.9 % (12.1-15.1); White Blood Count 9.7 10^3/uL (4.0-10.0)
[2022-09-24 13:53] LABS: Alanine Aminotransferase 13 U/L (0-41); Alkaline Phosphatase 81 U/L (40-130); Aspartate Amino Transferase 18 U/L (0-40); Blood Urea Nitrogen 11 mg/dL (8-23); Calcium 9.8 mg/dL (8.5-10.5); Carbon Dioxide 26 mmol/L (22-29); Chloride 100 mmol/L (98-107); Globulin 3.6 g/dL (1.3-4.6); Glucose 86 mg/dL (65-115); Osmolality Calculated 281 mOsm/kg (285-295); Sodium 136 mmol/L (136-145); Total Bilirubin 0.2 mg/dL (0.15-1.2); Total Protein 7.6 g/dL (6.6-8.7)
[2022-09-24 15:00] LABS: LAB Peripheral Smear Sent for Review
[2022-09-24 15:04] LABS: Iron 63 ug/dL (59-158); Percent Saturation 20.5 % (20-50); Total Iron Binding Capacity 306 mcg/dl; Unsaturated Iron Binding 243 ug/dL (112-347)
[2022-09-24] MEDS: leuprolide 22.5 mg Kit IM (15:14)
[2022-09-24 15:19] VITALS: BP 145/83; PULSE 84; RESP 18; TEMP 36.4; O2SAT 99
== END 2022-10-03 23:59 | disposition home or self-care (01) ==
PROVIDERS: PCP Internal Medicine; Visit Provider Internal Medicine Medical Oncology
DX: C61 Malignant neoplasm of prostate (principal); C77.8 Secondary and unspecified malignant neoplasm of lymph nodes of multiple regions; C79.51 Secondary malignant neoplasm of bone; D47.3 Essential (hemorrhagic) thrombocythemia; Z79.818 Long term (current) use of other agents affecting estrogen receptors and estrogen levels; Z79.899 Other long term (current) drug therapy
CPT/HCPCS: 36415; 80053; 83540; 83550; 84153; 85025; 96402; 99214; J9217

== ENCOUNTER 2022-12-25 08:30 | Oncology outpatient (recurring) (ONCR) | payer MEDICARE, SELFPAY ==
[2022-12-25 08:50] VITALS: BP 162/83; PULSE 88; RESP 18; TEMP 36.9; O2SAT 96
[2022-12-25 09:19] LABS: Basophils # 0.1 10^3/uL (0.0-0.1); Basophils % 0.7 %; Eosinophils # 0.8 10^3/uL (0.0-0.8); Eosinophils % 10.4 %; Hematocrit 32.4 % (42.0-52.0); Hemoglobin 10.4 g/dL (11.7-16.6); Lymphocytes # 1.7 10^3/uL (0.8-4.8); Lymphocytes % 22.2 %; Mean Corpuscular HGB Conc 32.1 g/dL (30.0-36.0); Mean Corpuscular Hemoglobin 29.5 pg (28.0-34.0); Mean Platelet Volume 8.1 fL (7.4-10.4); Monocytes # 0.7 10^3/uL (0.2-0.9); Monocytes % 9.1 %; Neutrophils # 4.35 10^3/uL (1.8-7.7); Neutrophils % 56.8 %; Nucleated Red Blood Cells % 0 %; Platelet Count 805 10^3/cmm (130-400); Red Blood Count 3.52 10^6/uL (4.1-5.3); Red Cell Distribution Width 16.7 % (12.1-15.1); White Blood Count 7.7 10^3/uL (4.0-10.0)
[2022-12-25 09:39] LABS: Alanine Aminotransferase 13 U/L (0-41); Albumin Level 4.1 g/dL (3.5-5.2); Alkaline Phosphatase 76 U/L (40-130); Anion Gap 13.2 (5-19); Aspartate Amino Transferase 16 U/L (0-40); Blood Urea Nitrogen 11 mg/dL (8-23); Calcium 9.6 mg/dL (8.5-10.5); Carbon Dioxide 26 mmol/L (22-29); Chloride 102 mmol/L (98-107); Globulin 3.2 g/dL (1.3-4.6); Glucose 94 mg/dL (65-115); Osmolality Calculated 283 mOsm/kg (285-295); Potassium 4.2 mmol/L (3.5-5.1); Sodium 137 mmol/L (136-145); Total Bilirubin 0.2 mg/dL (0.15-1.2); Total Protein 7.3 g/dL (6.6-8.7)
[2022-12-25 09:41] LABS: Prostate Specific Antigen < 0.014 ng/mL (0-4)
[2022-12-25] MEDS: leuprolide 22.5 mg Kit IM (10:42)
== END 2023-01-03 23:59 | disposition home or self-care (01) ==
PROVIDERS: PCP Internal Medicine; Visit Provider Internal Medicine Medical Oncology
DX: C61 Malignant neoplasm of prostate (principal); D47.3 Essential (hemorrhagic) thrombocythemia; D64.9 Anemia, unspecified; Z51.81 Encounter for therapeutic drug level monitoring; Z79.818 Long term (current) use of other agents affecting estrogen receptors and estrogen levels; D75.838 Other thrombocytosis; D50.9 Iron deficiency anemia, unspecified; Z79.899 Other long term (current) drug therapy; C79.51 Secondary malignant neoplasm of bone; Z51.11 Encounter for antineoplastic chemotherapy
CPT/HCPCS: 36415; 80053; 84153; 85025; 96402; 99215; J9217

== ENCOUNTER 2023-02-20 08:58 | Oncology outpatient (recurring) (ONCR) | payer MEDICARE, SELFPAY ==
[2023-02-20 09:49] VITALS: BP 121/82; PULSE 89; RESP 16; TEMP 36.3; O2SAT 97
[2023-02-20] MEDS: sodium chloride 0.9% 250 ML 75 ML IV (10:03)
[2023-02-20] MEDS: iron sucrose 500 MG in sodium chloride 0.9% 250 ML 78 MG IV (10:14)
[2023-02-20 13:49] VITALS: BP 121/59; PULSE 70; RESP 16; TEMP 36.7; O2SAT 98
== END 2023-03-05 23:59 | disposition home or self-care (01) ==
PROVIDERS: PCP Internal Medicine; Visit Provider Internal Medicine Medical Oncology
DX: C61 Malignant neoplasm of prostate (principal)
CPT/HCPCS: 96365; 96366; J1756; J7050

== ENCOUNTER 2023-03-19 10:15 | Oncology outpatient (recurring) (ONCR) | payer MEDICARE, SELFPAY ==
[2023-03-06 09:35] VITALS: BP 143/71; PULSE 71; RESP 17; TEMP 35.6; O2SAT 99
[2023-03-06] MEDS: sodium chloride 0.9% 250 ML 75 ML IV (09:47)
[2023-03-06] MEDS: iron sucrose 500 MG in sodium chloride 0.9% 250 ML 78 MG IV (10:04)
[2023-03-06 14:47] VITALS: BP 141/71; PULSE 80; RESP 18; TEMP 36.6; O2SAT 99
[2023-03-19 09:59] VITALS: BP 140/75; PULSE 85; RESP 16; TEMP 35.9; O2SAT 96
[2023-03-19 10:17] LABS: Basophils % 0.6 %; Eosinophils # 0.7 10^3/uL (0.0-0.8); Hematocrit 34.4 % (37-53); Lymphocytes % 29.3 %; Mean Corpuscular HGB Conc 32.6 g/dL (30-55); Mean Corpuscular Hemoglobin 30.1 pg (27-33); Mean Corpuscular Volume 92.5 fl (82-101); Monocytes # 0.6 10^3/uL (0.2-0.9); Monocytes % 8.6 %; Neutrophils # 3.51 10^3/uL (1.8-7.7); Neutrophils % 51.1 %; Nucleated Red Blood Cells % 0 %; Platelet Count 642 10^3/cmm (157-399); Red Blood Count 3.72 10^6/uL (3.85-5.65); Red Cell Distribution Width 14.4 % (12.1-15.1); White Blood Count 6.87 10^3/uL (3.29-11.43)
[2023-03-19 10:55] LABS: Alanine Aminotransferase 13 U/L (0-41); Alkaline Phosphatase 74 U/L (40-130); Anion Gap 12.7 (5-19); Aspartate Amino Transferase 17 U/L (0-40); Blood Urea Nitrogen 11 mg/dL (8-23); Calcium 9.6 mg/dL (8.5-10.5); Carbon Dioxide 25 mmol/L (22-29); Chloride 102 mmol/L (98-107); Globulin 3.3 g/dL (1.3-4.6); Glucose 90 mg/dL (65-115); Osmolality Calculated 281 mOsm/kg (285-295); Potassium 3.7 mmol/L (3.5-5.1); Sodium 136 mmol/L (136-145); Total Bilirubin 0.2 mg/dL (0.15-1.2); Total Protein 7.3 g/dL (6.6-8.7)
[2023-03-19 11:53] VITALS: BP 139/82; PULSE 73; TEMP 36.2; O2SAT 93
[2023-03-19] MEDS: leuprolide 22.5 mg Kit IM (12:06)
== END 2023-04-04 23:59 | disposition home or self-care (01) ==
PROVIDERS: Internal Medicine Medical Oncology; PCP Internal Medicine; Visit Provider Internal Medicine Medical Oncology
DX: D50.9 Iron deficiency anemia, unspecified (principal); D47.3 Essential (hemorrhagic) thrombocythemia; C61 Malignant neoplasm of prostate; Z51.81 Encounter for therapeutic drug level monitoring; Z79.818 Long term (current) use of other agents affecting estrogen receptors and estrogen levels; Z79.899 Other long term (current) drug therapy; Z51.11 Encounter for antineoplastic chemotherapy
CPT/HCPCS: 36415; 80053; 84153; 85025; 96365; 96366; 96402; 99214; J1756; J7050; J9217

== ENCOUNTER 2023-06-14 14:39 | Emergency (ER) | payer MEDICARE, SELFPAY ==
[2023-06-14 14:40] VITALS: BP 115/59; PULSE 96; RESP 16; TEMP 36.5; O2SAT 98
--- NOTE | 2023-06-14 14:49 | XR_ITS ---
WS: [id number] XR chest 1V [id number] REASON FOR EXAM: shortness of breath FINDINGS: The chest is unchanged compared to 02/04/2022. Moderate tortuosity and ectasia of the thoracic aorta. Normal heart size. Calcified granulomas disease bilaterally with chronic reticular interstitial lung opacities in the lo wer lung reynolds. No acute or subacute pulmonary parenchymal or pleural abnormality is identified. IMPRESSION: No acute chest abnormality.
--- NOTE | 2023-06-14 15:05 | ED_ITS ---
HPI - Syncope 2 General: Chief Complaint: Syncope Stated Complaint: hypotension, syncope Time Seen by Provider: 06/14/23 14:41 History of Present Illness: 78-year-old man who presents the emergen cy room by ambulance after having a syncopal episode on the way home after having an iron transfusion. He has had these in the past. This has not happened before. EMS reports he was hypotensive on their presentation. They report daughter said it took her several minutes to wake him up. He says he could remember at all he just could not speak for a little bit. He says has been feeling fine. No cough. No chest pain. No shortness of breath. No abdominal pain. No nausea or vomiting. No dysuria. No lower extremity swelling. Review of Systems 2 Narrative: Constitutional symptoms: Negative except as documented in HPI. Skin symptoms: Negative except as documented in HPI. Eye symptoms: Negative except as documented in HPI. ENMT symptoms: Negative except as documented in HPI. Respiratory symptoms: Negative except as documented in HPI. Cardiovascular symptoms: Negative except as documented in HPI. Gastrointestinal symptoms: Negative except as documented in HPI. Genitourinary symptoms: Negative except as documented in HPI. Musculoskeletal symptoms: Negative except as documented in HPI. Neurologic symptoms: Negative except as documented in HPI. Psychiatric symptoms: Negative except as documented in HPI. Endocrine symptoms: Negative except as documented in HPI. PFSH ED 2 PFSH: Medical History Acute CVA (cerebrovascular accident) Prostate cancer Surgical History History of prostate biopsy (10/18/21) TRUSP/biopsy Family History Father , AT 40 of unknown cause Mother , AT 88 Dementia Other CAD (coronary artery disease) Cancer Denies family history of Diabetes Clotting disorder Hyperlipidemia Psychiatric illness Chronic kidney disease (CKD) Suicide Anesthesia complication Bleeding disorder Lung disease Hypertension Stroke Social History Smoking and tobacco/nicotine status: current every day tobacco/nicotine user cigarettes Packs smoked per day: 1 Years cigarettes smoked: 50 Alcohol intake: never Substance/Drug Use: never Marital status: Current occupational status: employed 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 Skin: Warm, dry. Head: Normocephalic, atraumatic. Neck: Supple, trachea midline. Eye: Extraocular movements are intact. Ears, nose, mouth and throat: mucosa moist. Cardiovascular: Regular, Normal peripheral perfusion. Respiratory: Lungs are clear to auscultation, respirations are non-labored, breath sounds are equal, Symmetrical chest wall expansion. Gastrointestinal: Soft, Nontender, Non distended, Normal bowel sounds. Musculoskeletal: Normal ROM, no deformity. Neurological: Alert and oriented to person, place, time, and situation, No focal neurological deficit observed. Psychiatric: Cooperative, appropriate mood & affect. Course 2 Vital Signs: Vital signs: Vital Signs Temperature 97.7 F 06/14/23 14:40 Pulse Rate 94 06/14/23 16:13 Respiratory Rate 16 06/14/23 16:13 Blood Pressure 100/65 06/14/23 16:13 Pulse Oximetry 91 06/14/23 16:13 Oxygen Delivery Me thod Room Air 06/14/23 14:40 MDM - Syncope Medical Decision Making Hemoglobin is 8.8 today. Does not need transfusion. He did receive fluids which have improved his blood pressure and his symptoms. Urine appears somewhat infected with nitrite positive EKG: Time 1509 p.m. rate 93 normal sinus rhythm, No ST-T changes, no ectopy, normal MA & QRS intervals, This was reviewed and interpreted by myself the ER physician. Lab Data 06/14/23 15:16 06/14/23 15:16 Laboratory Results WBC 13.41 10^3/uL (3.29-11.43) H 06/14/23 15:16 RBC 3.35 10^6/uL (3.85-5.65) L 06/14/23 15:16 Hgb 8.80 g/dL (11.27-16.99) L 06/14/23 15:16 Hct 28.1 % (37-53) L 06/14/23 15:16 MCV 83.9 fl (82-101) 06/14/23 15:16 MCH 26.3 pg (27-33) L 06/14/23 15:16 MCHC 31.3 g/dL (30-55) 06/14/23 15:16 RDW 15.6 % (12.1-15.1) H 06/14/23 15:16 Plt Count 963 10^3/cmm (157-399) H 06/14/23 15:16 MPV 7.9 fL (7.4-10.4) 06/14/23 15:16 Neut % (Auto) 83.8 % 06/14/23 15:16 Lymph % (Auto) 8.7 % 06/14/23 15:16 [place] % (Auto) 4.5 % 06/14/23 15:16 Eos % (Auto) 1.3 % 06/14/23 15:16 Baso % (Auto) 0.4 % 06/14/23 15:16 Neut # (Auto) 11.25 10^3/uL (1.8-7.7) H 06/14/23 15:16 Lymph # (Auto) 1.2 10^3/uL (0.8-4.8) 06/14/23 15:16 [place] # (Auto) 0.6 10^3/uL (0.2-0.9) 06/14/23 15:16 Eos # (Auto) 0.2 10^3/uL (0.0-0.8) 06/14/23 15:16 Baso # (Auto) 0.1 10^3/uL (0.0-0.1) 06/14/23 15:16 Nucleated RBC % (auto) 0 % 06/14/23 15:16 Nucleated RBCs # 0.0 /100WBC 06/14/23 15:16 Sodium 134 mmol/L (136-145) L 06/14/23 15:16 Potassium 4.3 mmol/L (3.5-5.1) 06/14/23 15:16 Chloride 100 mmol/L (98-107) 06/14/23 15:16 Carbon Dioxide 23 mmol/L (22-29) 06/14/23 15:16 Anion Gap 15.3 (5-19) 06/14/23 15:16 BUN 12 mg/dL (8-23) 06/14/23 15:16 Creatinine 0.7 mg/dL (0.7-1.2) 06/14/23 15:16 GFR Calculation Not Reportable 06/14/23 15:16 Glucose 126 mg/dL (65-115) H 06/14/23 15:16 Calculated Osmolality 279 mOsm/kg (285-295) L 06/14/23 15:16 Lactic Acid 2.0 mmol/L (0.5-2.2) 06/14/23 15:16 Calcium 8.9 mg/dL (8.5-10.5) 06/14/23 15:16 Total Bilirubin 0.2 mg/dL (0.15-1.2) 06/14/23 15:16 AST 16 U/L (0-40) 06/14/23 15:16 ALT 13 U/L (0-41) 06/14/23 15:16 Alkaline Phosphatase 69 U/L (40-130) 06/14/23 15:16 C-Reactive Protein 18.1 mg/L (0.0-4.9) H 06/14/23 15:16 Total Protein 6.8 g/dL (6.6-8.7) 06/14/23 15:16 Albumin 3.6 g/dL (3.5-5.2) 06/14/23 15:16 Globulin 3.2 g/dL (1.3-4.6) 06/14/23 15:16 Urine Color Brown (Yellow) A 06/14/23 14:57 Urine Appearance Clear (CLEAR) 06/14/23 14:57 Urine pH 6 (5-7) 06/14/23 14:57 Ur Specific [place] 1.010 (1.005-1.030) 06/14/23 14:57 Urine Protein Trace (Negative) 06/14/23 14:57 Urine Glucose (UA) Norm (Normal) 06/14/23 14:57 Urine Ketones 1+ (Negative) H 06/14/23 14:57 Urine Blood Neg (Negative) 06/14/23 14:57 Urine Nitrate Positive (Negative) H 06/14/23 14:57 Urine Bilirubin Neg (Negative) 06/14/23 14:57 Urine Urobilinogen Norm mg/dL (Negative) 06/14/23 14:57 Ur Leukocyte Esterase 1+ (Negative) H 06/14/23 14:57 Urine RBC 0-4 /hpf (0-2) H 06/14/23 14:57 Urine WBC 0-4 /hpf (0-5) H 06/14/23 14:57 Ur Squamous Epith Cells 0-4 /hpf (0-5) H 06/14/23 14:57 Amorphous Sediment Not Reportable 06/14/23 14:57 Urine Bacteria Trace /hpf (NONE) 06/14/23 14:57 Urine Mucus Trace /hpf 06/14/23 14:57 Influenza Type A Ag negative (Negative) 06/14/23 15:07 Influenza Type B Ag negative (Negative) 06/14/23 15:07 SARS-CoV-2 Ag (Rapid) negative (Negative) 06/14/23 15:07 All radiology interpretation(s) finalized by discharge Other Data - IV fluids and IV Rocephin in the emergency room. -Patient states that he is very ready to go home. He feels better. - Discharged home - Discussed findings and plan with patient. Answered any questions. - All laboratory values were reviewed and interpreted personally by myself, the ER physician - All imaging was reviewed and interpreted personally by myself, the ER physician. - Evaluation and treatment of this problem were appropriate in the emergency setting Discharge Plan Discharge Patient Disposition: Home Clinical Impression: Dehydration, Urinary tract infection Condition: Stable Prescriptions: New cefdinir 300 mg capsule 300 mg PO BID 5 Days Qty: 10 0RF No Action Zyrtec 10 mg capsule 10 mg PO DAILY PRN (Reason: Allergy Symptoms) Centrum Men 8 mg iron- 200 mcg-600 mcg tablet 1 tab PO DAILY atorvastatin 40 mg tablet 40 mg PO DAILY Qty: 90 2RF clopidogrel 75 mg tablet 75 mg PO DAILY Qty: 30 3RF enzalutamide 40 mg tablet 160 mg PO DAILY Qty: 120 0RF ferrous gluconate 324 mg (38 mg iron) tablet 324 mg PO DAILY tamsulosin 0.4 mg capsule 0.4 mg PO BID lisinopril 2.5 mg Tablet 2.5 mg PO DAILY Qty: 30 0RF Discharge Orders: Discharge ED (Routine); Ordered 06/14/23 Ordered By: Roxann Jansen Referrals: Ryan Godfrey MD [Primary Care Provider] - (You have been screened and evaluated and felt safe for discharge. Health conditions do change or evolve sometimes and as such it is important that you follow up with your Primary Doctor to be re checked, 3-5 days is a general good time frame for follow up. You are always welcome to return to the ED for re assessment if your symptoms are worsening or you have new concerns) Patient Instructions: Opioid Safety, Pain Management Coding Level of Care Code ED [employer] Consultant for Heidy Norman
--- NOTE | 2023-06-14 15:09 | ECG_ITS ---
[facility] Test Date: 2023-06-14 Pat Name: Gamaliel Gallego Department: Room: Gender: Male Prefinish Operator: : 1945 Requested By: Roxann Zaragoza Order Number: [id number] Monterroso MD: Pawel Alexis M.D. Measurements Intervals [place] Rate: 93 P: 28 DC: 166 QRS: -53 QRSD: 96 T: 38 QT: 361 QTc: 450 Interpretive Statements SINUS RHYTHM WITH OCCASIONAL SUPRAVENTRICULAR PREMATURE COMPLEXES INCOMPLETE RIGHT BUNDLE BRANCH BLOCK [90+ ms QRS DURATION, TERMINAL R IN V1/V2, 40+ ms S IN I/aVL/V4/V5/V6] LEFT ANTERIOR FASCICULAR BLOCK [QRS AXIS <= -45, QR IN I, RS IN II] ANTERIOR MYOCARDIAL INFARCTION , PROBABLY OLD [40+ ms Q WAVE AND/OR ST/T ABNORMALITY IN V3/V4] Compared to ECG 02/03/2022 10:41:11 Incomplete right bundle-branch block now present Atrial abnormality no longer present Myocardial infarct finding still present Electronically Signed On 06-15-2023 5:55:57 [employer] ADMINISTRATOR by Pawel Alexis M.D. [email or web address]
[2023-06-14 15:20] VITALS: BP 108/66; BP 115/59; BP 116/79; PULSE 88; PULSE 91; PULSE 96
[2023-06-14 15:24] LABS: Basophils # 0.1 10^3/uL (0.0-0.1); Basophils % 0.4 %; Eosinophils # 0.2 10^3/uL (0.0-0.8); Eosinophils % 1.3 %; Hematocrit 28.1 % (37-53); Lymphocytes # 1.2 10^3/uL (0.8-4.8); Lymphocytes % 8.7 %; Mean Corpuscular HGB Conc 31.3 g/dL (30-55); Mean Corpuscular Hemoglobin 26.3 pg (27-33); Mean Corpuscular Volume 83.9 fl (82-101); Mean Platelet Volume 7.9 fL (7.4-10.4); Monocytes # 0.6 10^3/uL (0.2-0.9); Monocytes % 4.5 %; Neutrophils # 11.25 10^3/uL (1.8-7.7); Neutrophils % 83.8 %; Nucleated Red Blood Cells % 0 %; Platelet Count 963 10^3/cmm (157-399); Red Blood Count 3.35 10^6/uL (3.85-5.65); Red Cell Distribution Width 15.6 % (12.1-15.1); White Blood Count 13.41 10^3/uL (3.29-11.43)
[2023-06-14 15:32] LABS: Add Urine Culture? No; Bacteria Urine TRACE /hpf; Bilirubin Urine Neg (Negative); Blood Urine Neg (Negative); Glucose Urine UA Norm (Normal); Ketones Urine 1+ (Negative); Leukocyte Esterase Urine 1+ (Negative); Mucus Urine TRACE /hpf; Nitrate Urine Positive (Negative); Protein Urine Trace (Negative); RBC Urine 0-4 /hpf (0-2); Squamous Epithelial Cell Urine 0-4 /hpf (0-5); Urine Appearance Clear (CLEAR); Urine Color Brown (Yellow); Urobilinogen Urine Norm (Negative); WBC Urine 0-4 /hpf (0-5); pH Urine 6 (5-7)
[2023-06-14 15:43] LABS: Alanine Aminotransferase 13 U/L (0-41); Albumin Level 3.6 g/dL (3.5-5.2); Alkaline Phosphatase 69 U/L (40-130); Anion Gap 15.3 (5-19); Aspartate Amino Transferase 16 U/L (0-40); Blood Urea Nitrogen 12 mg/dL (8-23); C Reactive Protein 18.1 mg/L (0.0-4.9); Calcium 8.9 mg/dL (8.5-10.5); Carbon Dioxide 23 mmol/L (22-29); Chloride 100 mmol/L (98-107); Creatinine Clr Calc Pharmacy 78.7417; Globulin 3.2 g/dL (1.3-4.6); Glucose 126 mg/dL (65-115); Osmolality Calculated 279 mOsm/kg (285-295); Potassium 4.3 mmol/L (3.5-5.1); Sodium 134 mmol/L (136-145); Total Bilirubin 0.2 mg/dL (0.15-1.2); Total Protein 6.8 g/dL (6.6-8.7)
[2023-06-14 16:01] LABS: SARS Covid-2 Antigen negative (Negative)
[2023-06-14 16:02] LABS: Influenza A by IFA negative (Negative); Influenza B by IFA negative (Negative)
[2023-06-14 16:13] VITALS: BP 100/65; PULSE 94; RESP 16; O2SAT 91
[2023-06-14] MEDS: cefTRIAXone 1,000 MG in sodium chloride 0.9% (plus) 50 ML 100 MG IV (17:23)
[2023-06-14 17:26] VITALS: BP 100/65; PULSE 94; RESP 16; TEMP 36.5; O2SAT 91
== END 2023-06-14 17:27 | disposition home or self-care (01) ==
PROVIDERS: Emergency Provider Emergency Medicine; PCP Internal Medicine
DX: N39.0 Urinary tract infection, site not specified (principal); E86.0 Dehydration; Z79.02 Long term (current) use of antithrombotics/antiplatelets; Z11.52 Encounter for screening for COVID-19; Z86.73 Personal history of transient ischemic attack (TIA), and cerebral infarction without residual deficits; Z85.46 Personal history of malignant neoplasm of prostate; F17.210 Nicotine dependence, cigarettes, uncomplicated
CPT/HCPCS: 36415; 71045; 80053; 81001; 83605; 85025; 86140; 87426; 87804; 93005; 96374; 99285; J0696

== ENCOUNTER 2023-07-02 11:00 | Oncology outpatient (recurring) (ONCR) | payer MEDICARE, SELFPAY ==
[2023-06-11 11:47] LABS: Basophils % 0.4 %; Eosinophils # 0.5 10^3/uL (0.0-0.8); Eosinophils % 7.1 %; Hematocrit 24.2 % (37-53); Lymphocytes # 2.3 10^3/uL (0.8-4.8); Lymphocytes % 30.6 %; Mean Corpuscular HGB Conc 31.8 g/dL (30-55); Mean Corpuscular Hemoglobin 26.8 pg (27-33); Mean Corpuscular Volume 84.3 fl (82-101); Mean Platelet Volume 7.9 fL (7.4-10.4); Monocytes # 0.6 10^3/uL (0.2-0.9); Monocytes % 7.4 %; Neutrophils # 4.02 10^3/uL (1.8-7.7); Neutrophils % 54.1 %; Nucleated Red Blood Cells % 0 %; Platelet Count 805 10^3/cmm (157-399); Red Blood Count 2.87 10^6/uL (3.85-5.65); Red Cell Distribution Width 15.2 % (12.1-15.1); White Blood Count 7.43 10^3/uL (3.29-11.43)
[2023-06-11 12:10] LABS: Alanine Aminotransferase 11 U/L (0-41); Albumin Level 3.9 g/dL (3.5-5.2); Alkaline Phosphatase 66 U/L (40-130); Anion Gap 12.9 (5-19); Aspartate Amino Transferase 15 U/L (0-40); Blood Urea Nitrogen 11 mg/dL (8-23); Calcium 9.3 mg/dL (8.5-10.5); Carbon Dioxide 23 mmol/L (22-29); Chloride 97 mmol/L (98-107); Ferritin 13 ng/mL (30-400); Globulin 3.6 g/dL (1.3-4.6); Glucose 106 mg/dL (65-115); Iron 11 ug/dL (59-158); Osmolality Calculated 268 mOsm/kg (285-295); Potassium 3.9 mmol/L (3.5-5.1); Sodium 129 mmol/L (136-145); Total Bilirubin 0.2 mg/dL (0.15-1.2); Total Iron Binding Capacity 360 mcg/dl; Total Protein 7.5 g/dL (6.6-8.7); Unsaturated Iron Binding 349 ug/dL (112-347)
[2023-06-11 14:06] LABS: Prostate Specific Antigen 0.024 ng/mL (0-4)
[2023-06-11 14:55] LABS: Reticulocyte % 2.2 % (0.5-2.0)
[2023-06-11] MEDS: leuprolide 22.5 mg Kit IM (14:59)
[2023-06-11 15:23] LABS: Free T4 Free Thyroxine 1.27 ng/dL (0.82-1.77); Lactate Dehydrogenase 145 U/L (135-225); Testosterone Total 2.5 ng/dL (193-740); Thyroid Stimulating Hormone 2.96 uIU/mL (0.27-4.20)
[2023-06-11 15:54] LABS: Add Urine Microscopic? NO; Charge for UA Resulting for Rev
[2023-06-11 16:39] LABS: Bilirubin Urine Neg (Negative); Blood Urine Neg (Negative); Glucose Urine UA Norm (Normal); Ketones Urine Negative (Negative); Leukocyte Esterase Urine Negative (Negative); Nitrate Urine Negative (Negative); Protein Urine Neg (Negative); Urine Appearance Clear (CLEAR); Urine Color Yellow (Yellow); Urobilinogen Urine Norm (Negative); pH Urine 6.5 (5-7)
[2023-06-14 09:13] VITALS: BP 126/63; PULSE 85; RESP 16; TEMP 36.9; O2SAT 96
[2023-06-14] MEDS: iron sucrose 500 MG in sodium chloride 0.9% 250 ML 78 MG IV (09:44)
[2023-06-14 10:15] VITALS: BP 132/78
[2023-06-14 11:49] VITALS: BP 137/77; PULSE 83; RESP 16; O2SAT 96
== END 2023-07-04 23:59 | disposition home or self-care (01) ==
PROVIDERS: Internal Medicine; Nurse Practitioner Family; PCP Internal Medicine; Visit Provider Internal Medicine Medical Oncology
DX: Z53.9 Procedure and treatment not carried out, unspecified reason (principal)
CPT/HCPCS: 36415; 80053; 81003; 82728; 83010; 83540; 83550; 83615; 84153; 84403; 84439; 84443; 85025; 85045; 96365; 96366; 96402; 99214; J1756; J7050; J9217

== ENCOUNTER 2023-08-02 11:24 | Oncology outpatient (recurring) (ONCR) | payer MEDICARE, SELFPAY ==
[2023-07-30 12:11] LABS: Basophils % 0.3 %; Eosinophils # 0.4 10^3/uL (0.0-0.8); Eosinophils % 7.1 %; Hematocrit 27.7 % (37-53); Lymphocytes # 1.7 10^3/uL (0.8-4.8); Lymphocytes % 27.6 %; Mean Corpuscular Hemoglobin 27.5 pg (27-33); Mean Corpuscular Volume 88.5 fl (82-101); Mean Platelet Volume 7.6 fL (7.4-10.4); Monocytes # 0.5 10^3/uL (0.2-0.9); Monocytes % 7.6 %; Neutrophils # 3.41 10^3/uL (1.8-7.7); Neutrophils % 56.7 %; Nucleated Red Blood Cells % 0 %; Platelet Count 808 10^3/cmm (157-399); Red Blood Count 3.13 10^6/uL (3.85-5.65); Red Cell Distribution Width 18.9 % (12.1-15.1); White Blood Count 6.02 10^3/uL (3.29-11.43)
[2023-07-30 12:42] LABS: Alanine Aminotransferase 9 U/L (0-41); Albumin Level 3.8 g/dL (3.5-5.2); Alkaline Phosphatase 76 U/L (40-130); Anion Gap 15.3 (5-19); Aspartate Amino Transferase 17 U/L (0-40); Blood Urea Nitrogen 10 mg/dL (8-23); Calcium 9.2 mg/dL (8.5-10.5); Carbon Dioxide 23 mmol/L (22-29); Chloride 98 mmol/L (98-107); Globulin 3.4 g/dL (1.3-4.6); Glucose 100 mg/dL (65-115); Osmolality Calculated 273 mOsm/kg (285-295); Potassium 4.3 mmol/L (3.5-5.1); Sodium 132 mmol/L (136-145); Total Bilirubin 0.2 mg/dL (0.15-1.2); Total Protein 7.2 g/dL (6.6-8.7)
[2023-07-30 16:31] LABS: Ferritin 44 ng/mL (30-400); Iron 18 ug/dL (59-158); Total Iron Binding Capacity 297 mcg/dl; Unsaturated Iron Binding 279 ug/dL (112-347)
== END 2023-08-04 23:59 | disposition home or self-care (01) ==
PROVIDERS: Internal Medicine; Nurse Practitioner Family; PCP Internal Medicine; Visit Provider Internal Medicine Medical Oncology
DX: Z53.9 Procedure and treatment not carried out, unspecified reason (principal)
CPT/HCPCS: 36415; 80053; 82728; 83540; 83550; 84153; 85025; 99214

== ENCOUNTER 2023-09-03 13:43 | Oncology outpatient (recurring) (ONCR) | payer MEDICARE, SELFPAY ==
[2023-09-03 14:01] LABS: Basophils # 0.1 10^3/uL (0.0-0.1); Basophils % 0.8 %; Eosinophils # 0.6 10^3/uL (0.0-0.8); Eosinophils % 10.8 %; Hematocrit 27.9 % (37-53); Lymphocytes # 1.8 10^3/uL (0.8-4.8); Lymphocytes % 29.9 %; Mean Corpuscular HGB Conc 31.5 g/dL (30-55); Mean Corpuscular Hemoglobin 28.5 pg (27-33); Mean Corpuscular Volume 90.3 fl (82-101); Mean Platelet Volume 7.8 fL (7.4-10.4); Monocytes # 0.5 10^3/uL (0.2-0.9); Nucleated Red Blood Cells % 0 %; Platelet Count 789 10^3/cmm (157-399); Red Blood Count 3.09 10^6/uL (3.85-5.65); Red Cell Distribution Width 16.7 % (12.1-15.1); White Blood Count 5.92 10^3/uL (3.29-11.43)
[2023-09-03 14:29] LABS: Alanine Aminotransferase 9 U/L (0-41); Albumin Level 3.8 g/dL (3.5-5.2); Alkaline Phosphatase 69 U/L (40-130); Anion Gap 12.9 (5-19); Aspartate Amino Transferase 15 U/L (0-40); Blood Urea Nitrogen 10 mg/dL (8-23); Calcium 8.7 mg/dL (8.5-10.5); Carbon Dioxide 25 mmol/L (22-29); Chloride 100 mmol/L (98-107); Ferritin 48 ng/mL (30-400); Globulin 3.1 g/dL (1.3-4.6); Glucose 100 mg/dL (65-115); Iron 309 ug/dL (59-158); Osmolality Calculated 277 mOsm/kg (285-295); Potassium 3.9 mmol/L (3.5-5.1); Prostate Specific Antigen 0.029 ng/mL (0-4); Sodium 134 mmol/L (136-145); Total Bilirubin 0.2 mg/dL (0.15-1.2); Total Protein 6.9 g/dL (6.6-8.7)
[2023-09-03 14:43] LABS: Total Iron Binding Capacity 317.99999 mcg/dl; Unsaturated Iron Binding < 9 ug/dL (112-347)
[2023-09-03] MEDS: leuprolide 22.5 mg Kit IM (15:29)
== END 2023-09-03 23:59 | disposition home or self-care (01) ==
PROVIDERS: Internal Medicine; PCP Internal Medicine; Visit Provider Internal Medicine Medical Oncology
DX: Z53.9 Procedure and treatment not carried out, unspecified reason (principal); Z51.11 Encounter for antineoplastic chemotherapy; C61 Malignant neoplasm of prostate; Z86.73 Personal history of transient ischemic attack (TIA), and cerebral infarction without residual deficits; D47.3 Essential (hemorrhagic) thrombocythemia; Z79.899 Other long term (current) drug therapy
CPT/HCPCS: 36415; 80053; 82728; 83540; 83550; 84153; 85025; 99214; J9217

== ENCOUNTER 2023-09-25 14:00 | Oncology outpatient (recurring) (ONCR) | payer MEDICARE, SELFPAY ==
[2023-09-16 14:30] LABS: Basophils % 0.7 %; Eosinophils % 16.1 %; Hematocrit 25.7 % (37-53); Lymphocytes % 33.6 %; Mean Corpuscular HGB Conc 31.1 g/dL (30-55); Mean Corpuscular Hemoglobin 27.5 pg (27-33); Mean Corpuscular Volume 88.3 fl (82-101); Mean Platelet Volume 7.8 fL (7.4-10.4); Monocytes # 0.7 10^3/uL (0.2-0.9); Neutrophils # 2.28 10^3/uL (1.8-7.7); Neutrophils % 38.1 %; Nucleated Red Blood Cells % 0 %; Platelet Count 824 10^3/cmm (157-399); Red Blood Count 2.91 10^6/uL (3.85-5.65); Red Cell Distribution Width 15.7 % (12.1-15.1); White Blood Count 5.98 10^3/uL (3.29-11.43)
[2023-09-16 14:48] LABS: Alanine Aminotransferase 8 U/L (0-41); Albumin Level 3.8 g/dL (3.5-5.2); Alkaline Phosphatase 66 U/L (40-130); Aspartate Amino Transferase 15 U/L (0-40); Blood Urea Nitrogen 8 mg/dL (8-23); Calcium 8.7 mg/dL (8.5-10.5); Carbon Dioxide 25 mmol/L (22-29); Chloride 103 mmol/L (98-107); Ferritin 23 ng/mL (30-400); Globulin 3.5 g/dL (1.3-4.6); Glucose 94 mg/dL (65-115); Iron 8 ug/dL (59-158); Osmolality Calculated 282 mOsm/kg (285-295); Percent Saturation 2.5 % (20-50); Sodium 137 mmol/L (136-145); Total Bilirubin 0.2 mg/dL (0.15-1.2); Total Iron Binding Capacity 309 mcg/dl; Total Protein 7.3 g/dL (6.6-8.7); Unsaturated Iron Binding 301 ug/dL (112-347)
[2023-09-25 14:17] LABS: Basophils % 0.7 %; Eosinophils # 0.4 10^3/uL (0.0-0.8); Eosinophils % 7.9 %; Hematocrit 24.3 % (37-53); Lymphocytes # 1.5 10^3/uL (0.8-4.8); Lymphocytes % 27.6 %; Mean Corpuscular HGB Conc 30.9 g/dL (30-55); Mean Corpuscular Hemoglobin 26.5 pg (27-33); Mean Corpuscular Volume 85.9 fl (82-101); Monocytes # 0.7 10^3/uL (0.2-0.9); Monocytes % 11.9 %; Neutrophils # 2.84 10^3/uL (1.8-7.7); Neutrophils % 51.4 %; Nucleated Red Blood Cells % 0 %; Platelet Count 795 10^3/cmm (157-399); Red Blood Count 2.83 10^6/uL (3.85-5.65); Red Cell Distribution Width 15.5 % (12.1-15.1); White Blood Count 5.54 10^3/uL (3.29-11.43)
[2023-09-25 14:54] LABS: Alanine Aminotransferase 9 U/L (0-41); Albumin Level 3.8 g/dL (3.5-5.2); Alkaline Phosphatase 70 U/L (40-130); Anion Gap 13.6 (5-19); Aspartate Amino Transferase 19 U/L (0-40); Blood Urea Nitrogen 6 mg/dL (8-23); Calcium 8.6 mg/dL (8.5-10.5); Carbon Dioxide 23 mmol/L (22-29); Chloride 100 mmol/L (98-107); Ferritin 16 ng/mL (30-400); Globulin 3.6 g/dL (1.3-4.6); Glucose 106 mg/dL (65-115); Iron 9 ug/dL (59-158); Osmolality Calculated 274 mOsm/kg (285-295); Percent Saturation 2.6 % (20-50); Potassium 3.6 mmol/L (3.5-5.1); Sodium 133 mmol/L (136-145); Total Bilirubin 0.2 mg/dL (0.15-1.2); Total Iron Binding Capacity 340 mcg/dl; Total Protein 7.4 g/dL (6.6-8.7); Unsaturated Iron Binding 331 ug/dL (112-347)
== END 2023-10-04 23:59 | disposition home or self-care (01) ==
PROVIDERS: Nurse Practitioner Family; PCP Internal Medicine; Visit Provider Internal Medicine Medical Oncology
DX: Z53.9 Procedure and treatment not carried out, unspecified reason (principal); D50.9 Iron deficiency anemia, unspecified; C61 Malignant neoplasm of prostate; Z79.899 Other long term (current) drug therapy; D47.3 Essential (hemorrhagic) thrombocythemia; Z51.81 Encounter for therapeutic drug level monitoring; Z79.818 Long term (current) use of other agents affecting estrogen receptors and estrogen levels; Z87.891 Personal history of nicotine dependence; E87.1 Hypo-osmolality and hyponatremia; N41.9 Inflammatory disease of prostate, unspecified; E78.5 Hyperlipidemia, unspecified
CPT/HCPCS: 36415; 80053; 82274; 82728; 83540; 83550; 85025

== ENCOUNTER 2023-11-26 12:16 | Oncology outpatient (recurring) (ONCR) | payer MEDICARE, SELFPAY ==
[2023-11-26 13:02] LABS: Basophils % 0.7 %; Eosinophils # 0.6 10^3/uL (0.0-0.8); Eosinophils % 11.6 %; Hematocrit 26.9 % (37-53); Lymphocytes # 1.3 10^3/uL (0.8-4.8); Lymphocytes % 23.3 %; Mean Corpuscular HGB Conc 30.9 g/dL (30-55); Mean Corpuscular Hemoglobin 28.4 pg (27-33); Mean Corpuscular Volume 92.1 fl (82-101); Mean Platelet Volume 7.9 fL (7.4-10.4); Monocytes # 0.5 10^3/uL (0.2-0.9); Monocytes % 8.9 %; Neutrophils # 3.02 10^3/uL (1.8-7.7); Nucleated Red Blood Cells % 0 %; Platelet Count 739 10^3/cmm (157-399); Red Blood Count 2.92 10^6/uL (3.85-5.65); Red Cell Distribution Width 17.7 % (12.1-15.1)
[2023-11-26 13:36] LABS: Alanine Aminotransferase 8 U/L (0-41); Albumin Level 3.9 g/dL (3.5-5.2); Alkaline Phosphatase 56 U/L (40-130); Aspartate Amino Transferase 15 U/L (0-40); Blood Urea Nitrogen 10 mg/dL (8-23); Calcium 9.1 mg/dL (8.5-10.5); Carbon Dioxide 24 mmol/L (22-29); Chloride 101 mmol/L (98-107); Globulin 3.1 g/dL (1.3-4.6); Glucose 93 mg/dL (65-115); Osmolality Calculated 275 mOsm/kg (285-295); Prostate Specific Antigen 0.023 ng/mL (0-4); Sodium 133 mmol/L (136-145); Total Bilirubin 0.2 mg/dL (0.15-1.2)
[2023-11-26 14:08] LABS: Creatinine Clr Calc Pharmacy 74.5903
[2023-11-26 14:17] LABS: Ferritin 47 ng/mL (30-400); Iron 19 ug/dL (59-158); Percent Saturation 6.2 % (20-50); Total Iron Binding Capacity 302 mcg/dl; Unsaturated Iron Binding 283 ug/dL (112-347)
[2023-11-26] MEDS: leuprolide 22.5 mg Kit IM (14:23)
== END 2023-12-04 23:59 | disposition home or self-care (01) ==
PROVIDERS: Nurse Practitioner Family; PCP Internal Medicine; Visit Provider Internal Medicine Medical Oncology
DX: D50.9 Iron deficiency anemia, unspecified; C61 Malignant neoplasm of prostate; Z79.899 Other long term (current) drug therapy; D47.3 Essential (hemorrhagic) thrombocythemia; Z79.818 Long term (current) use of other agents affecting estrogen receptors and estrogen levels; Z51.11 Encounter for antineoplastic chemotherapy; Z53.9 Procedure and treatment not carried out, unspecified reason
CPT/HCPCS: 36415; 80053; 82728; 83540; 83550; 84153; 85025; 96402; 99214; J9217

== ENCOUNTER 2024-02-18 13:35 | Oncology outpatient (recurring) (ONCR) | payer MEDICARE, SELFPAY ==
[2024-02-18 13:57] LABS: Basophils % 0.5 %; Eosinophils # 0.4 10^3/uL (0.0-0.8); Eosinophils % 7.2 %; Lymphocytes # 1.8 10^3/uL (0.8-4.8); Lymphocytes % 33.3 %; Mean Corpuscular HGB Conc 31.6 g/dL (30-55); Mean Corpuscular Volume 95.1 fl (82-101); Mean Platelet Volume 8.1 fL (7.4-10.4); Monocytes # 0.5 10^3/uL (0.2-0.9); Monocytes % 8.7 %; Neutrophils # 2.75 10^3/uL (1.8-7.7); Neutrophils % 49.8 %; Nucleated Red Blood Cells % 0 %; Platelet Count 647 10^3/cmm (157-399); Red Blood Count 2.63 10^6/uL (3.85-5.65); White Blood Count 5.53 10^3/uL (3.29-11.43)
[2024-02-18 14:26] LABS: Alanine Aminotransferase 11 U/L (0-41); Alkaline Phosphatase 49 U/L (40-130); Anion Gap 11.9 (5-19); Aspartate Amino Transferase 17 U/L (0-40); Blood Urea Nitrogen 7 mg/dL (8-23); Calcium 8.9 mg/dL (8.5-10.5); Carbon Dioxide 24 mmol/L (22-29); Chloride 97 mmol/L (98-107); Creatinine Clr Calc Pharmacy 74.5903; Ferritin 29 ng/mL (30-400); Globulin 2.8 g/dL (1.3-4.6); Glucose 94 mg/dL (65-115); Iron 17 ug/dL (59-158); Osmolality Calculated 266 mOsm/kg (285-295); Percent Saturation 5.3 % (20-50); Potassium 3.9 mmol/L (3.5-5.1); Sodium 129 mmol/L (136-145); Total Bilirubin 0.2 mg/dL (0.15-1.2); Total Iron Binding Capacity 317 mcg/dl; Total Protein 6.8 g/dL (6.6-8.7); Unsaturated Iron Binding 300 ug/dL (112-347)
[2024-02-18] MEDS: leuprolide 22.5 mg Kit IM (16:03)
== END 2024-03-05 23:59 | disposition home or self-care (01) ==
PROVIDERS: Nurse Practitioner Family; PCP Internal Medicine; Visit Provider Internal Medicine Hematology & Oncology
DX: Z51.11 Encounter for antineoplastic chemotherapy (principal); C61 Malignant neoplasm of prostate; D50.9 Iron deficiency anemia, unspecified; D47.3 Essential (hemorrhagic) thrombocythemia; Z79.899 Other long term (current) drug therapy; Z79.818 Long term (current) use of other agents affecting estrogen receptors and estrogen levels
CPT/HCPCS: 36415; 80053; 82728; 83540; 83550; 84153; 85025; 96402; 99214; J9217

== ENCOUNTER 2024-05-12 11:57 | Oncology outpatient (recurring) (ONCR) | payer MEDICARE, SELFPAY ==
[2024-05-12 12:31] LABS: Basophils # 0.1 10^3/uL (0.0-0.1); Basophils % 0.7 %; Eosinophils # 0.2 10^3/uL (0.0-0.8); Eosinophils % 3.1 %; Hematocrit 31.2 % (37-53); Lymphocytes # 1.2 10^3/uL (0.8-4.8); Lymphocytes % 15.6 %; Mean Corpuscular HGB Conc 30.1 g/dL (30-55); Mean Corpuscular Hemoglobin 27.8 pg (27-33); Mean Corpuscular Volume 92.3 fl (82-101); Monocytes # 0.5 10^3/uL (0.2-0.9); Monocytes % 6.5 %; Neutrophils # 5.62 10^3/uL (1.8-7.7); Neutrophils % 73.6 %; Nucleated Red Blood Cells % 0 %; Platelet Count 767 10^3/cmm (157-399); Red Blood Count 3.38 10^6/uL (3.85-5.65); White Blood Count 7.64 10^3/uL (3.29-11.43)
[2024-05-12 13:12] LABS: Alanine Aminotransferase 10 U/L (0-41); Albumin Level 4.1 g/dL (3.5-5.2); Alkaline Phosphatase 78 U/L (40-130); Anion Gap 18.1 (5-19); Aspartate Amino Transferase 18 U/L (0-40); Blood Urea Nitrogen 11 mg/dL (8-23); Calcium 9.9 mg/dL (8.5-10.5); Carbon Dioxide 23 mmol/L (22-29); Chloride 102 mmol/L (98-107); Creatinine Clr Calc Pharmacy 79.3182; Globulin 3.2 g/dL (1.3-4.6); Glucose 109 mg/dL (65-115); Osmolality Calculated 288 mOsm/kg (285-295); Potassium 4.1 mmol/L (3.5-5.1); Prostate Specific Antigen 0.032 ng/mL (0-4); Sodium 139 mmol/L (136-145); Testosterone Total 2.5 ng/dL (193-740); Total Bilirubin 0.2 mg/dL (0.15-1.2); Total Protein 7.3 g/dL (6.6-8.7)
[2024-05-12] MEDS: leuprolide 22.5 mg Kit IM (13:16)
== END 2024-06-05 23:59 | disposition home or self-care (01) ==
PROVIDERS: Nurse Practitioner Family; PCP Internal Medicine; Visit Provider Internal Medicine Medical Oncology
DX: Z51.11 Encounter for antineoplastic chemotherapy (principal); C61 Malignant neoplasm of prostate; D50.9 Iron deficiency anemia, unspecified; D47.3 Essential (hemorrhagic) thrombocythemia; Z79.899 Other long term (current) drug therapy; Z79.818 Long term (current) use of other agents affecting estrogen receptors and estrogen levels
CPT/HCPCS: 36415; 80053; 84153; 84403; 85025; 96402; 99214; J9217

== ENCOUNTER 2024-08-17 12:27 | Oncology outpatient (recurring) (ONCR) | payer MEDICARE, SELFPAY ==
[2024-08-17 12:56] LABS: Basophils # 0.1 10^3/uL (0.0-0.1); Basophils % 0.7 %; Eosinophils # 0.6 10^3/uL (0.0-0.8); Hematocrit 33.5 % (37-53); Lymphocytes # 1.5 10^3/uL (0.8-4.8); Lymphocytes % 21.1 %; Mean Corpuscular HGB Conc 31.9 g/dL (30-55); Mean Corpuscular Volume 90.8 fl (82-101); Monocytes # 0.6 10^3/uL (0.2-0.9); Neutrophils # 4.21 10^3/uL (1.8-7.7); Neutrophils % 61.3 %; Nucleated Red Blood Cells % 0 %; Platelet Count 815 10^3/cmm (157-399); Red Blood Count 3.69 10^6/uL (3.85-5.65); Red Cell Distribution Width 15.7 % (12.1-15.1); White Blood Count 6.87 10^3/uL (3.29-11.43)
[2024-08-17 13:27] LABS: Alanine Aminotransferase 11 U/L (0-41); Alkaline Phosphatase 68 U/L (40-130); Anion Gap 17.1 (5-19); Aspartate Amino Transferase 20 U/L (0-40); Blood Urea Nitrogen 9 mg/dL (8-23); Calcium 9.5 mg/dL (8.5-10.5); Carbon Dioxide 22 mmol/L (22-29); Chloride 99 mmol/L (98-107); Creatinine Clr Calc Pharmacy 77.2621; Globulin 3.5 g/dL (1.3-4.6); Glucose 94 mg/dL (65-115); Osmolality Calculated 276 mOsm/kg (285-295); Potassium 4.1 mmol/L (3.5-5.1); Sodium 134 mmol/L (136-145); Total Bilirubin 0.2 mg/dL (0.15-1.2); Total Protein 7.5 g/dL (6.6-8.7)
[2024-08-17 13:29] LABS: Testosterone Total < 2.5 ng/dL (193-740)
[2024-08-17 13:45] LABS: Ferritin 64 ng/mL (30-400); Iron 38 ug/dL (59-158); Percent Saturation 11.7 % (20-50); Total Iron Binding Capacity 324 mcg/dl; Unsaturated Iron Binding 286 ug/dL (112-347)
[2024-08-17] MEDS: leuprolide 22.5 mg Kit IM (14:05)
== END 2024-09-02 23:59 | disposition home or self-care (01) ==
PROVIDERS: Internal Medicine Medical Oncology; PCP Internal Medicine; Visit Provider Internal Medicine
DX: Z51.11 Encounter for antineoplastic chemotherapy (principal); C61 Malignant neoplasm of prostate; D47.3 Essential (hemorrhagic) thrombocythemia; D50.9 Iron deficiency anemia, unspecified; F17.210 Nicotine dependence, cigarettes, uncomplicated; Z79.818 Long term (current) use of other agents affecting estrogen receptors and estrogen levels
CPT/HCPCS: 36415; 80053; 82728; 83540; 83550; 84153; 84403; 85025; 96402; 99214; J9217

== ENCOUNTER 2024-11-09 12:27 | Oncology outpatient (recurring) (ONCR) | payer MEDICARE, SELFPAY ==
[2024-11-09 12:47] LABS: Hematocrit 35.6 % (37-53); Hemoglobin 11.60 g/dL (11.27-16.99); Mean Corpuscular HGB Conc 32.6 g/dL (30-55); Mean Corpuscular Hemoglobin 30.9 pg (27-33); Mean Corpuscular Volume 94.9 fl (82-101); Nucleated Red Blood Cells % 0 %; Platelet Count 705 10^3/cmm (157-399); Red Blood Count 3.75 10^6/uL (3.85-5.65); White Blood Count 6.23 10^3/uL (3.29-11.43)
[2024-11-09 13:29] LABS: Alanine Aminotransferase 9 U/L (0-41); Albumin Level 3.9 g/dL (3.5-5.2); Alkaline Phosphatase 73 U/L (40-130); Anion Gap 17.3 (5-19); Aspartate Amino Transferase 18 U/L (0-40); Blood Urea Nitrogen 9 mg/dL (8-23); Calcium 9.5 mg/dL (8.5-10.5); Carbon Dioxide 22 mmol/L (22-29); Chloride 102 mmol/L (98-107); Creatinine Clr Calc Pharmacy 76.6950; Globulin 3.2 g/dL (1.3-4.6); Glucose 88 mg/dL (65-115); Osmolality Calculated 282 mOsm/kg (285-295); Potassium 4.3 mmol/L (3.5-5.1); Prostate Specific Antigen 0.050 ng/mL (0-4); Sodium 137 mmol/L (136-145); Total Protein 7.1 g/dL (6.6-8.7); Vitamin B12 501 pg/mL (232-1245)
[2024-11-09] MEDS: leuprolide 22.5 mg Kit IM (13:42)
== END 2024-12-03 23:59 | disposition home or self-care (01) ==
PROVIDERS: Nurse Practitioner Family; PCP Internal Medicine; Visit Provider Internal Medicine
DX: Z51.11 Encounter for antineoplastic chemotherapy (principal); C61 Malignant neoplasm of prostate; D47.3 Essential (hemorrhagic) thrombocythemia; D50.9 Iron deficiency anemia, unspecified; F17.200 Nicotine dependence, unspecified, uncomplicated; Z79.818 Long term (current) use of other agents affecting estrogen receptors and estrogen levels; Z79.899 Other long term (current) drug therapy
CPT/HCPCS: 36415; 80053; 82607; 82746; 83010; 83615; 84153; 84403; 85025; 85045; 96402; 99214; J9217

== ENCOUNTER 2025-02-01 12:13 | Oncology outpatient (recurring) (ONCR) | payer MEDICARE, SELFPAY ==
[2025-02-01 12:41] LABS: Hematocrit 27.8 % (37-53); Hemoglobin 9.00 g/dL (11.27-16.99); Mean Corpuscular HGB Conc 32.4 g/dL (30-55); Mean Corpuscular Hemoglobin 31.6 pg (27-33); Mean Corpuscular Volume 97.5 fl (82-101); Nucleated Red Blood Cells % 0 %; Platelet Count 755 10^3/cmm (157-399); Red Blood Count 2.85 10^6/uL (3.85-5.65); White Blood Count 5.42 10^3/uL (3.29-11.43)
[2025-02-01 13:18] LABS: Alanine Aminotransferase 9 U/L (0-41); Albumin Level 3.7 g/dL (3.5-5.2); Alkaline Phosphatase 67 U/L (40-130); Anion Gap 14.1 (5-19); Aspartate Amino Transferase 17 U/L (0-40); Blood Urea Nitrogen 7 mg/dL (8-23); Calcium 9.1 mg/dL (8.5-10.5); Carbon Dioxide 24 mmol/L (22-29); Chloride 100 mmol/L (98-107); Creatinine Clr Calc Pharmacy 75.4308; Ferritin 38 ng/mL (30-400); Globulin 3.2 g/dL (1.3-4.6); Glucose 94 mg/dL (65-115); Iron 15 ug/dL (59-158); Osmolality Calculated 276 mOsm/kg (285-295); Potassium 4.1 mmol/L (3.5-5.1); Prostate Specific Antigen 0.061 ng/mL (0-4); Sodium 134 mmol/L (136-145); Total Iron Binding Capacity 299 mcg/dl; Total Protein 6.9 g/dL (6.6-8.7); Unsaturated Iron Binding 284 ug/dL (112-347)
[2025-02-01] MEDS: leuprolide 22.5 mg Kit IM (13:42)
== END 2025-02-02 23:59 | disposition home or self-care (01) ==
PROVIDERS: Internal Medicine Medical Oncology; PCP Internal Medicine; Visit Provider Internal Medicine
DX: Z51.11 Encounter for antineoplastic chemotherapy (principal); C61 Malignant neoplasm of prostate; D47.3 Essential (hemorrhagic) thrombocythemia; D50.9 Iron deficiency anemia, unspecified; F17.200 Nicotine dependence, unspecified, uncomplicated; R97.20 Elevated prostate specific antigen [PSA]; Z79.818 Long term (current) use of other agents affecting estrogen receptors and estrogen levels; Z79.899 Other long term (current) drug therapy
CPT/HCPCS: 36415; 80053; 82728; 83540; 83550; 84153; 84403; 85025; 96402; 99214; J9217

== ENCOUNTER 2025-05-03 10:17 | Oncology outpatient (recurring) (ONCR) | payer MEDICARE, SELFPAY ==
[2025-05-03 10:33] LABS: Hematocrit 36.3 % (37-53); Hemoglobin 11.60 g/dL (11.27-16.99); Mean Corpuscular HGB Conc 32.0 g/dL (30-55); Mean Corpuscular Hemoglobin 30.1 pg (27-33); Mean Corpuscular Volume 94.3 fl (82-101); Nucleated Red Blood Cells % 0 %; Platelet Count 678 10^3/cmm (157-399); Red Blood Count 3.85 10^6/uL (3.85-5.65); White Blood Count 6.88 10^3/uL (3.29-11.43)
[2025-05-03 11:07] LABS: Alanine Aminotransferase 9 U/L (0-41); Albumin Level 3.8 g/dL (3.5-5.2); Alkaline Phosphatase 95 U/L (40-130); Anion Gap 16.2 (5-19); Aspartate Amino Transferase 19 U/L (0-40); Blood Urea Nitrogen 10 mg/dL (8-23); Calcium 9.7 mg/dL (8.5-10.5); Carbon Dioxide 24 mmol/L (22-29); Chloride 98 mmol/L (98-107); Ferritin 50 ng/mL (30-400); Globulin 3.4 g/dL (1.3-4.6); Glucose 97 mg/dL (65-115); Iron 33 ug/dL (59-158); Osmolality Calculated 277 mOsm/kg (285-295); Potassium 4.2 mmol/L (3.5-5.1); Prostate Specific Antigen 0.071 ng/mL (0-4); Sodium 134 mmol/L (136-145); Total Iron Binding Capacity 317 mcg/dl; Total Protein 7.2 g/dL (6.6-8.7); Unsaturated Iron Binding 284 ug/dL (112-347)
[2025-05-03] MEDS: leuprolide 22.5 mg Kit IM (13:02)
== END 2025-05-05 23:59 | disposition home or self-care (01) ==
PROVIDERS: Nurse Practitioner Family; PCP Internal Medicine; Visit Provider Internal Medicine Medical Oncology
DX: Z53.9 Procedure and treatment not carried out, unspecified reason; Z51.11 Encounter for antineoplastic chemotherapy; C61 Malignant neoplasm of prostate; C79.51 Secondary malignant neoplasm of bone; C77.5 Secondary and unspecified malignant neoplasm of intrapelvic lymph nodes; D47.3 Essential (hemorrhagic) thrombocythemia; D50.9 Iron deficiency anemia, unspecified; F17.210 Nicotine dependence, cigarettes, uncomplicated; Z79.818 Long term (current) use of other agents affecting estrogen receptors and estrogen levels; Z79.899 Other long term (current) drug therapy; Z86.73 Personal history of transient ischemic attack (TIA), and cerebral infarction without residual deficits; Z71.6 Tobacco abuse counseling
CPT/HCPCS: 80053; 82728; 83540; 83550; 84153; 84403; 85025; 96402; 99214; J9217